=== PATIENT | female | born 1955 | race Caucasian/White ===

== ENCOUNTER 2017-02-24 12:01 | Observation (INO) ==
[2017-02-24] MEDS ORDERED: *HR* HYDROmorphone (PF) 1 MG/ML SYRINGE IVP ONE (12:14)
[2017-02-24] MEDS ORDERED: methylPREDNISolone 125 MG/2 ML VIAL IVP ONE (12:14)
[2017-02-24] MEDS ORDERED: Ondansetron 4 MG/2 ML VIAL IVP ONE (12:14)
--- NOTE | 2017-02-24 12:17 | Emergency Department Note ---
Disposition Clinical Impression: Weakness, Hyperglycemia Disposition: Admitted As Inpatient Condition: Good Extremity Problem HPI - General Chief complaint: ED Extremity Problem,Nontraumatic Stated complaint: bilateral leg pain Time Seen by Provider: 02/24/17 12:12 Source: patient Limitations: no limitations Nursing Notes Reviewed: Yes Vital Signs Reviewed: Yes - History of Present Illness HPI Narrative: Patient presents for evaluation of bilateral lower extremity pain. Patient states that the pain started overnight and did not allow her to get any sleep. Patient describes pain as being in the anterior legs with associated weakness. She does not have any specific joint tenderness or muscular tenderness. Patient 's dorsalis pedis is +1 and symmetric bilaterally. Patient has overall decreased strength in the lower extremities as well as associated pain with attempts at movement. No associated fevers or chills. No preceding viral illness. No chest pain or shortness of breath. No abdominal pain. No increased urinary frequency or burning with urination. Patient has been preparing a lot of meals for an upcoming escaping celebration. She says she is on her feet more than usual. She states her arthritis in her hands has also flared up. Pain Scale: 9 - Related Data Home Medications Medication Instructions Recorded Confirmed Metformin HCl [Metformin HCl ER] 1,000 mg PO BID #0 12/13/14 02/24/17 Pravastatin Sodium [Pravachol] 20 mg PO DAILY #0 12/13/14 02/24/17 predniSONE [PredniSONE] 30 mg PO DAILY #0 12/13/14 02/24/17 Lisinopril [Zestril] 20 mg PO DAILY 12/14/14 02/24/17 Cholecalciferol (D-3) [Vitamin D] 2,000 unit PO DAILY 02/24/17 02/24/17 GlipiZIDE [Glipizide Xl] 5 mg PO DAILY 02/24/17 02/24/17 Ranitidine HCl [Zantac] 150 mg PO HS 02/24/17 02/24/17 Allergies Allergy/AdvReac Type Severity Reaction Status Date / Time No Known Allergies Allergy Verified 12/13/14 14:06 Review of Systems: CONSTITUTIONAL: No weight loss, fever, chills, weakness or fatigue. HEENT: Eyes: No visual changes. Ears, Nose, Throat: No hearing loss, difficulty talking or unable to swallow. SKIN: No rash or itching. CARDIOVASCULAR: No chest pain, chest pressure or chest discomfort. No palpitations or edema. RESPIRATORY: No shortness of breath, cough or sputum. GASTROINTESTINAL: No anorexia, nausea, vomiting or diarrhea. No abdominal pain or blood. GENITOURINARY: No burning on urination or hematuria. NEUROLOGICAL: No headache, dizziness, syncope, paralysis, ataxia, numbness or tingling in the extremities. No change in bowel or bladder control. MUSCULOSKELETAL: Lower extremity pain b/l Endocrine: Elevated blood sugars Past Medical History - Past Medical History Medical history: Reports: diabetes, hypertension Surgical history: Reports: , cholecystectomy, other Psychiatric history: Reports: no psych history INFORMATICS MANAGER history: Reports: no INFORMATICS MANAGER history - Social History Smoking Status: Former smoker Smokeless Tobacco Status: No Alcohol use: Reports: none Drug use: Reports: none Physical Exam General appearance: NAD, conversant Eyes: anicteric sclerae, moist conjunctivae; PERRL HENT: Atraumatic; oropharynx clear with moist mucous membranes and no mucosal ulcerations Neck: Normal inspection; Trachea midline; FROM, supple Lungs: CTA, with normal respiratory effort and no intercostal retractions CV: RRR, no MRGs Abdomen: Soft, non-tender; no rebound or gaurding Extremities: No peripheral edema or extremity lymphadenopathy D. Pedis +1 and Symmetric Bilaterally Skin: Normal temperature; no rash, ulcers or lesions Psych: Appropriate mood and affect Neuro: alert and oriented to person, place and time Musculoskeletal: Muscle strength is 4-5 bilaterally to the lower extremities with hip flexion as well as knee flexion. - General Limitations: no limitations General appearance: alert, in no apparent distress Course - Reevaluation(s) Reevaluation #1: The patient's white blood cell count is elevated at 15. The patient has hyperglycemia with only mild improvement to fluids and subcutaneous insulin. The patient during shows significantly elevated glucose as well as ketones. Patient will need admission for further steroids and glucose control as well as hydration. Will discuss with hospitalist. Ultrasound of the legs was negative for DVT. KIERAN is normal bilaterally. - Consultations Consultation #1: Discussed with the hospitalist. Patient accepted for admission. Discussed other interventions including possible consult neurology. At this time the patient's flareup similar to previous lupus flare and has had some improvement with steroids, fluids, glucose control, pain medication. The patient does not qualify for at home trial of steroid burst dose secondary to her elevated blood sugars. At this time believe the most reasonable course of action is steroids and glucose control and continued monitoring. After the hospitalist comes down to evaluate the patient, we will discuss any further possibilities or concerns. Vital Signs Temperature 98.7 F 02/24/17 12:02 Pulse Rate 125 02/24/17 12:02 Respiratory Rate 18 02/24/17 12:02 Blood Pressure 170/69 02/24/17 12:02 O2 Sat by Pulse Oximetry 97 02/24/17 12:02 Temperature 98.7 F 02/24/17 12:02 Pulse Rate 107 02/24/17 16:30 Respiratory Rate 18 02/24/17 17:27 Blood Pressure 140/65 02/24/17 17:27 O2 Sat by Pulse Oximetry 96 02/24/17 16:30 Oxygen Delivery Oxygen Delivery Room Air Extremity Problem, Nontraumati - Lab Data Result diagrams: 02/24/17 12:42 02/24/17 12:42 Lab Results 02/24/17 02/24/17 02/24/17 Range/Units 12:14 12:42 12:42 WBC 15.7 H (4.3-11.1) K/mcL RBC 4.35 (3.82-4.97) M/mcL Hgb 13.2 (11.5-15.4) g/dL Hct 39.5 (35.3-44.9) % MCV 90.8 (83.0-100.0) fL MCH 30.3 (28.0-33.3) pg MCHC 33.4 (31.6-35.5) g/dL RDW 13.3 (11.5-14.5) % Plt Count 244 (140-400) K/mcL MPV 10.0 (9.4-12.4) fL Immature Gran % 0.6 (0-4) % Seg Neutrophils % 89.6 % Lymphocytes % 4.1 % Monocytes % 5.3 % Eosinophils % 0.1 % Basophils % 0.3 % Neutrophils # 14.1 H (1.6-8.9) K/mcL Lymphocytes # 0.7 (0.6-4.6) K/mcL Monocytes # 0.8 (0.0-1.3) K/mcL Eosinophils # 0.0 (0.0-0.6) K/mcL Basophils # 0.0 (0.0-0.2) K/mcL Immature Plt Fraction 4.2 (1.1-6.1) % ESR 34 H (0-15) mm/hr Sodium (136-145) mEq/L Potassium (3.5-4.5) mEq/L Chloride (98-109) mEq/L Carbon Dioxide (19-29) mEq/L BUN (7-20) mg/dL Creatinine (0.57-1.11) mg/dL Est GFR ( Amer) (> 60) Est GFR (Non-Af Amer) (> 60) BUN/Creatinine Ratio (6-26) Glucose (70-99) mg/dL POC Glucose 344 H (58-89) Calculated Osmolality (280-300) Calcium (8.6-10.8) mg/dL Total Bilirubin (0.2-1.2) mg/dL AST (5-34) Units/L ALT (0-55) Units/L Alkaline Phosphatase (38-126) Units/L Creatine Kinase (29-168) Units/L C-Reactive Protein (Less than 5) mg/L Serum Total Protein (6.0-8.3) g/dL Albumin (3.5-5.0) g/dL Globulin (2.4-3.5) g/dL Albumin/Globulin Ratio (1.1-2.2) Urine Color (Yellow) Urine Clarity (Clear) Urine pH (5.0-8.0) pH Units Ur Specific [place] (1.010-1.025) Urine Protein (Neg-Trace) mg/dL Urine Glucose (UA) (Normal) mg/dL Urine Ketones (Negative) mg/dL Urine Blood (Negative) Urine Nitrite (Negative) Urine Bilirubin (Negative) Urine Urobilinogen (Normal) mg/dL Ur Leukocyte Esterase (Negative) Ur Culture Indicated? (NO) 02/24/17 02/24/17 02/24/17 Range/Units 12:42 12:42 13:35 WBC (4.3-11.1) K/mcL RBC (3.82-4.97) M/mcL Hgb (11.5-15.4) g/dL Hct (35.3-44.9) % MCV (83.0-100.0) fL MCH (28.0-33.3) pg MCHC (31.6-35.5) g/dL RDW (11.5-14.5) % Plt Count (140-400) K/mcL MPV (9.4-12.4) fL Immature Gran % (0-4) % Seg Neutrophils % % Lymphocytes % % Monocytes % % Eosinophils % % Basophils % % Neutrophils # (1.6-8.9) K/mcL Lymphocytes # (0.6-4.6) K/mcL Monocytes # (0.0-1.3) K/mcL Eosinophils # (0.0-0.6) K/mcL Basophils # (0.0-0.2) K/mcL Immature Plt Fraction (1.1-6.1) % ESR (0-15) mm/hr Sodium 136 (136-145) mEq/L Potassium 4.0 (3.5-4.5) mEq/L Chloride 100 (98-109) mEq/L Carbon Dioxide 23 (19-29) mEq/L BUN 21 H (7-20) mg/dL Creatinine 1.00 (0.57-1.11) mg/dL Est GFR ( Amer) > 60 (> 60) Est GFR (Non-Af Amer) 56 L (> 60) BUN/Creatinine Ratio 21 (6-26) Glucose 408 H (70-99) mg/dL POC Glucose (58-89) Calculated Osmolality 302 H (280-300) Calcium 10.5 (8.6-10.8) mg/dL Total Bilirubin 1.7 H (0.2-1.2) mg/dL AST 13 (5-34) Units/L ALT 21 (0-55) Units/L Alkaline Phosphatase 46 (38-126) Units/L Creatine Kinase 27 L (29-168) Units/L C-Reactive Protein 25 H (Less than 5) mg/L Serum Total Protein 6.9 (6.0-8.3) g/dL Albumin 3.8 (3.5-5.0) g/dL Globulin 3.1 (2.4-3.5) g/dL Albumin/Globulin Ratio 1.2 (1.1-2.2) Urine Color Yellow (Yellow) Urine Clarity Clear (Clear) Urine pH 6.0 (5.0-8.0) pH Units Ur Specific [place] > 1.030 H (1.010-1.025) Urine Protein Negative (Neg-Trace) mg/dL Urine Glucose (UA) >=1000 H (Normal) mg/dL Urine Ketones 15 H (Negative) mg/dL Urine Blood Negative (Negative) Urine Nitrite Negative (Negative) Urine Bilirubin Negative (Negative) Urine Urobilinogen Normal (Normal) mg/dL Ur Leukocyte Esterase Negative (Negative) Ur Culture Indicated? NO (NO) 02/24/17 Range/Units 14:46 WBC (4.3-11.1) K/mcL RBC (3.82-4.97) M/mcL Hgb (11.5-15.4) g/dL Hct (35.3-44.9) % MCV (83.0-100.0) fL MCH (28.0-33.3) pg MCHC (31.6-35.5) g/dL RDW (11.5-14.5) % Plt Count (140-400) K/mcL MPV (9.4-12.4) fL Immature Gran % (0-4) % Seg Neutrophils % % Lymphocytes % % Monocytes % % Eosinophils % % Basophils % % Neutrophils # (1.6-8.9) K/mcL Lymphocytes # (0.6-4.6) K/mcL Monocytes # (0.0-1.3) K/mcL Eosinophils # (0.0-0.6) K/mcL Basophils # (0.0-0.2) K/mcL Immature Plt Fraction (1.1-6.1) % ESR (0-15) mm/hr Sodium (136-145) mEq/L Potassium (3.5-4.5) mEq/L Chloride (98-109) mEq/L Carbon Dioxide (19-29) mEq/L BUN (7-20) mg/dL Creatinine (0.57-1.11) mg/dL Est GFR ( Amer) (> 60) Est GFR (Non-Af Amer) (> 60) BUN/Creatinine Ratio (6-26) Glucose (70-99) mg/dL POC Glucose 360 H (58-89) Calculated Osmolality (280-300) Calcium (8.6-10.8) mg/dL Total Bilirubin (0.2-1.2) mg/dL AST (5-34) Units/L ALT (0-55) Units/L Alkaline Phosphatase (38-126) Units/L Creatine Kinase (29-168) Units/L C-Reactive Protein (Less than 5) mg/L Serum Total Protein (6.0-8.3) g/dL Albumin (3.5-5.0) g/dL Globulin (2.4-3.5) g/dL Albumin/Globulin Ratio (1.1-2.2) Urine Color (Yellow) Urine Clarity (Clear) Urine pH (5.0-8.0) pH Units Ur Specific [place] (1.010-1.025) Urine Protein (Neg-Trace) mg/dL Urine Glucose (UA) (Normal) mg/dL Urine Ketones (Negative) mg/dL Urine Blood (Negative) Urine Nitrite (Negative) Urine Bilirubin (Negative) Urine Urobilinogen (Normal) mg/dL Ur Leukocyte Esterase (Negative) Ur Culture Indicated? (NO) Attestation Statement - Attestation Attestation: I examined this patient and my medical decision-making was reviewed with the Resident Physician. I agree with the documented findings, disposition and treatment plan as described except to the extent set forth below. Bilateral lower extremity pain. History of lupus. Duplexes as well as ABIs are within normal limits. No evidence of clot burden in the lower extremities. We are concerned about acute onset weakness. This is possibly related to lupus which she has had in the past. I would avoid high-dose steroids given her uncontrolled diabetes. Given her degree of weakness we will plan to admit for further evaluation. We did consider infectious versus inflammatory causes of weakness. Plan to admit for neurological consultation.
[2017-02-24 12:49] LABS: Basophils % 0.3 %; Eosinophils % 0.1 %; Hematocrit 39.5 % (35.3-44.9); Hemoglobin 13.2 g/dL (11.5-15.4); Immature Granulocytes % 0.6 % (0-4); Immature Platelets 4.2 % (1.1-6.1); Lymphocytes # 0.7 K/mcL (0.6-4.6); Lymphocytes % 4.1 %; Mean Corpuscular HGB Conc 33.4 g/dL (31.6-35.5); Mean Corpuscular Hemoglobin 30.3 pg (28.0-33.3); Mean Corpuscular Volume 90.8 fL (83.0-100.0); Monocytes # 0.8 K/mcL (0.0-1.3); Monocytes % 5.3 %; Neutrophils # 14.1 K/mcL (1.6-8.9); Platelet Count 244 K/mcL (140-400); Red Blood Count 4.35 M/mcL (3.82-4.97); Red Cell Distribution Width 13.3 % (11.5-14.5); Segmented Neutrophils % 89.6 %
[2017-02-24 13:03] LABS: Alanine Aminotransferase 21 Units/L (0-55); Albumin 3.8 g/dL (3.5-5.0); Albumin/Globulin Ratio 1.2 (1.1-2.2); Alkaline Phosphatase 46 Units/L (38-126); Aspartate Amino Transferase 13 Units/L (5-34); BUN/Creatinine Ratio 21 (6-26); Bilirubin,Total 1.7 mg/dL (0.2-1.2); Blood Urea Nitrogen 21 mg/dL (7-20); C-Reactive Protein 25 mg/L (Less than 5); Calcium 10.5 mg/dL (8.6-10.8); Carbon Dioxide 23 mEq/L (19-29); Chloride 100 mEq/L (98-109); Globulin 3.1 g/dL (2.4-3.5); Glucose 408 mg/dL (70-99); Osmolality,Calculated 302 (280-300); Sodium 136 mEq/L (136-145); Total Protein 6.9 g/dL (6.0-8.3); eGFR For African Americans > 60 (> 60); eGFR For Non-African Americans 56 (> 60)
[2017-02-24] MEDS ORDERED: 0.9 % Sodium Chloride 1,000 ML IVC ONE ×2 (13:11→16:07)
[2017-02-24] MEDS ORDERED: Insulin Regular, Human 100 UNIT/ML SQ ONE ×2 (13:13→16:08)
[2017-02-24 13:43] LABS: Bilirubin,Urine Negative (Negative); Blood,Urine Negative (Negative); Clarity,Urine Clear (Clear); Color,Urine Yellow (Yellow); Glucose,Urine (UA) >=1000 mg/dL (Normal); Ketones,Urine 15 mg/dL (Negative); Leukocyte Esterase,Urine Negative (Negative); Nitrite,Urine Negative (Negative); Protein,Urine Negative (Neg-Trace); Specific Gravity,Urine > 1.030 (1.010-1.025); Urobilinogen,Urine Normal (Normal)
[2017-02-24] MEDS ORDERED: Ondansetron 4 MG/2 ML VIAL IVP PRN (17:04)
[2017-02-24] MEDS ORDERED: Naloxone 0.4 MG/ML INJ IVP PRN (17:04)
[2017-02-24] MEDS ORDERED: *HR* OxyCODONE Immed Rel 5 MG TABLET PO PRN (17:04)
[2017-02-24] MEDS ORDERED: *HR* HYDROmorphone (PF) 1 MG/ML SYRINGE IVP PRN (17:04)
[2017-02-24] MEDS ORDERED: Acetaminophen 325 MG TABLET PO PRN (17:04)
[2017-02-24] MEDS ORDERED: D5% in Water 1,000 ML IVC PRN (17:06)
[2017-02-24] MEDS ORDERED: *HR* Dextrose 50 % in Water (Syg) 50 ML SYRINGE IVP PRN (17:06)
[2017-02-24] MEDS ORDERED: Dextrose Gel 15 GM PO PRN ×2 (17:06)
--- NOTE | 2017-02-24 17:11 | Internal Med History&Physical ---
Date of Encounter: 02/24/17 Time of Encounter: 17:09 Assessment and Plan (1) Intractable neuropathic pain of lower extremity Current visit: Yes Status: Acute Bilateral intractable lower extremity pain with associated weakness Order MRI of the spine/lumbar Patient is concerned about possible exacerbation of lupus, with very similar symptoms in the past and requesting Solu-Medrol *Solu-Medrol IV PTOT, fall precautions Neuro checks Omeprazole for GI prophylaxis and subcutaneous heparin for DVT prophylaxis. The patient will be admitted for observation. Full code. Time spent on this admission 40 minutes. High risk for falling Qualifiers: Laterality: unspecified laterality Qualified Code(s): G57.90 - Unspecified mononeuropathy of unspecified lower limb (2) Lupus Current visit: Yes Status: Acute Continue steroids Qualifiers: Systemic lupus erythematosus type: unspecified Systemic lupus erythematosus organ involvement: unspecified Qualified Code(s): M32.9 - Systemic lupus erythematosus, unspecified (3) SIRS (systemic inflammatory response syndrome) Current visit: Yes Status: Acute Nonspecific Order chest x-ray and UA (4) Non-insulin dependent type 2 diabetes mellitus Current visit: No Status: Chronic Steroid-induced hyperglycemia *Levemir and insulin sliding scale (5) Steroid dependence Current visit: No Status: Chronic (6) Weakness Current visit: Yes Status: Acute Internal Medicine - H&P: HPI Chief complaint: Severe lower extremity pain Admitted From: Emergency Dept History of present illness: Ms. Do is a 61 year old female with a past medical history of possible lupus on chronic prednisone, diabetes type 2 not insulin-dependent, chronic leukocytosis, hypertension came to the emergency room complaining of severe lower extremity pain that started between 3 and 4 AM, generalized, described as soreness and burning, the patient has experienced some weakness on both lower extremities for the past few months. Denies any numbness and denies any progression from her distal parts of her legs, not progressing upwards. No recent illness, no fevers. The patient says that she had a similar episode about 5 years ago that was diagnosed as a possible lupus exacerbation which improved considerably with the use of Solu-Medrol. Her ESR is 34 CRPs 25 glucose is 408 white blood cell count 15.7, heart rate 114 blood pressure 170/ 69. Also describes that lower stomach pain and stabbing, related to movement 6 out of 10 in intensity but unbearable when she tries to move. Received 1 dose of Solu-Medrol at the emergency room, unable to walk due to the pain. ER requested her admission Past Med Surg Social Fam HX - Past Medical History Medical history: diabetes (Not insulin-dependent), hypertension, other ( Possible lupus on chronic prednisone 20 mg daily, hyperlipidemia, leg cellulitis , chronic leukocytosis) Psychiatric history: no psych history - Past Surgical History Surgical History: , cholecystectomy, other - Social History Smoking Status: Former smoker Smokeless Tobacco Status: No Alcohol use: none Drug use: none - Family History Father Hx Family Cardiac Disorders: Yes - Additional Family History Additional family history: Father with myocardial infarction in his 30s and possible autoimmune disease, mother with diabetes and hyperlipidemia CAD/CABG Internal Medicine - H&P: Meds Metformin 1,000 mg PO BID 12/13/14 [History] Pravastatin Sodium 20 mg PO DAILY 12/13/14 [History] PredniSONE 20 mg PO DAILY 12/13/14 [History] Lisinopril [Zestril] 20 mg PO DAILY 12/14/14 [History] Cholecalciferol (D-3) [Vitamin D] 2,000 unit PO DAILY 02/24/17 [History] GlipiZIDE [Glipizide Xl] 5 mg PO DAILY 02/24/17 [History] Ranitidine HCl [Zantac] 150 mg PO HS 02/24/17 [History] 3 Allergy/AdvReac Type Severity Reaction Status Date / Time No Known Allergies Allergy Verified 12/13/14 14:06 All Systems PM: A 10-system review of systems was performed and is negative for pertinent findings except as documented above in the HPI. Review of systems: No chest pain, short of breath, no abdominal pain, no dysuria or incontinence of urine or stool, generalized pain. Other systems out of the 10 revealed were negative - Constitutional Vitals: Temp Pulse Resp BP Pulse Ox 98.7 F 107 18 151/79 96 02/24/17 12:02 02/24/17 16:30 02/24/17 16:30 02/24/17 16:30 02/24/17 16:30 General appearance: Present: A&O X 3 - Head Head exam: Present: atraumatic, normocephalic - Eye Eye exam: Present: PERRL, conjuntiva pink, sclera anicteric Pupils: Present: PERRL - Neck Neck exam general surgery: Present: supple, trachea midline. Absent: lymphadenopathy - Respiratory Respiratory exam: Present: CTAB. Absent: accessory muscle use, rales, rhonchi, wheezes - Cardiovascular Cardiovascular exam: Present: RRR, +S1, +S2. Absent: diastolic murmur, gallop, rubs, systolic murmur - GI/Abdominal GI/Abdominal exam: Present: normal bowel sounds, soft, no peritoneal signs. Absent: distended, tenderness - Extremities Exam Extremities exam: Present: warm, radial pulses palpable and symmetrical. Absent : calf tenderness, cyanotic, pedal edema - Neurological Exam Neurological exam: Present: CN II-XII intact, oriented X3. Absent: no focal deficits, pronater drift, facial droop, speech deficit Additional comments: 4 out of 5 strength in both lower extremities, no numbness. No tenderness, no erythema - Skin Skin exam: Present: dry, intact Internal Med - H&P Results - Labs CBC & Chem 7: 02/24/17 12:42 02/24/17 12:42
[2017-02-24] MEDS ORDERED: 0.9 % Sodium Chloride 1,000 ML IVC SCH (17:15)
[2017-02-24] MEDS ORDERED: Insulin LISPRO 300 UNITS/3 ML VIAL SQ SCH (21:00)
[2017-02-24] MEDS: Insulin LISPRO 300 UNITS/3 ML VIAL SQ SCH (21:01)
[2017-02-24] MEDS: *HR* Heparin 5,000 UNIT/ML VIAL SQ SCH ×2 (21:04→21:14)
[2017-02-24] MEDS: Insulin DETEMIR 100 UNIT/ML X5UNITS SQ SCH (21:13)
[2017-02-24] MEDS: Lisinopril 20 MG TABLET PO SCH (21:13)
[2017-02-24] MEDS: MethylPREDNISolone 40 MG/ML VIAL IVP SCH (21:13)
[2017-02-25 03:58] VITALS: BP 125/71
[2017-02-25 04:14] LABS: Hematocrit 33.7 % (35.3-44.9); Mean Corpuscular HGB Conc 32.9 g/dL (31.6-35.5); Mean Corpuscular Hemoglobin 30.2 pg (28.0-33.3); Mean Corpuscular Volume 91.6 fL (83.0-100.0); Mean Platelet Volume 10.8 fL (9.4-12.4); Platelet Count 202 K/mcL (140-400); Red Blood Count 3.68 M/mcL (3.82-4.97); Red Cell Distribution Width 13.2 % (11.5-14.5)
[2017-02-25 04:16] LABS: Hemoglobin 11.1 g/dL (11.5-15.4)
[2017-02-25 04:19] LABS: Hemoglobin A1C 9.4 %
[2017-02-25 04:29] LABS: BUN/Creatinine Ratio 19 (6-26); Blood Urea Nitrogen 16 mg/dL (7-20); Calcium 9.2 mg/dL (8.6-10.8); Carbon Dioxide 23 mEq/L (19-29); Chloride 107 mEq/L (98-109); Glucose 237 mg/dL (70-99); Osmolality,Calculated 295 (280-300); Potassium 4.6 mEq/L (3.5-4.5); Sodium 138 mEq/L (136-145); eGFR For African Americans > 60 (> 60); eGFR For Non-African Americans > 60 (> 60)
[2017-02-25] MEDS: *HR* Heparin 5,000 UNIT/ML VIAL SQ SCH (06:02)
--- NOTE | 2017-02-25 07:54 | Discharge Summary ---
Date of Encounter: 02/25/17 Time of Encounter: 07:48 - Discharge Diagnosis (1) Intractable neuropathic pain of lower extremity Priority: Primary Status: Acute Comments: Bilateral intractable lower extremity pain , unclear etiology, possibly associated to Lupus, subsided whit solumedrol Qualifiers: Laterality: unspecified laterality Qualified Code(s): G57.90 - Unspecified mononeuropathy of unspecified lower limb (2) Lupus Priority: Secondary Status: Acute Qualifiers: Systemic lupus erythematosus type: unspecified Systemic lupus erythematosus organ involvement: unspecified Qualified Code(s): M32.9 - Systemic lupus erythematosus, unspecified (3) SIRS (systemic inflammatory response syndrome) Priority: Secondary Status: Acute (4) Non-insulin dependent type 2 diabetes mellitus Priority: Secondary Status: Chronic Comments: Steroid-induced hyperglycemia (5) Steroid dependence Priority: Secondary Status: Chronic (6) Weakness Priority: Secondary Status: Acute - Discharge Medications Prescriptions: OxyCODONE Immed Rel [Roxicodone 5 MG] 5 mg PO Q6HR PRN #30 tablet PRN Reason: Moderate Pain (4-6) Insulin DETEMIR [Levemir] 10 unit SQ BID 30 Days [id number] Insulin LISPRO [HumaLOG] 5 units SQ TIDAC 30 Days vial predniSONE [PredniSONE] 10 mg PO DAILY 21 Days tablet Home Medications: Metformin HCl [Metformin HCl ER] 1,000 mg PO BID #0 12/13/14 [History] Pravastatin Sodium [Pravachol] 20 mg PO DAILY #0 12/13/14 [History] Lisinopril [Zestril] 20 mg PO DAILY 12/14/14 [History] Cholecalciferol (D-3) [Vitamin D] 2,000 unit PO DAILY 02/24/17 [History] GlipiZIDE [Glipizide Xl] 5 mg PO DAILY 02/24/17 [History] Ranitidine HCl [Zantac] 150 mg PO HS 02/24/17 [History] Insulin DETEMIR [Levemir] 10 unit SQ BID 30 Days [id number] 02/25/17 [Rx] Insulin LISPRO [HumaLOG] 5 units SQ TIDAC 30 Days vial 02/25/17 [Rx] OxyCODONE Immed Rel [Roxicodone 5 MG] 5 mg PO Q6HR PRN #30 tablet 02/25/17 [Rx] predniSONE [PredniSONE] 10 mg PO DAILY 21 Days tablet 02/25/17 [Rx] Allergies/Adverse Reactions: 3 Allergy/AdvReac Type Severity Reaction Status Date / Time No Known Allergies Allergy Verified 12/13/14 14:06 Procedures/tests Complete & Pending: Procedures Performed prior 72 hours Category Date Time Status MR lumbar spine wo con [MR] Routine MRI 02/24/17 17:04 Stop Req Date of admission: 02/24/17 16:32 Primary care physician: Ric Rasheed MD Consults: 02/24/17 17:16 Consult to Occupational Therapy [CONS] Routine Comment: Evaluate, develop and implement POC Reason for Consult: Eval Consult to Physical Therapy [CONS] Routine Comment: Evaluate, develop and implement POC Reason for Consult: Eval - Patient Status Disposition: Home, Self-Care Condition: Good Overall status at discharge: patient is back to baseline - Discharge Instructions Follow Up With: Ric Rasheed MD [Primary Care Provider] - Additional Instructions: Follow-up with primary care physician within the next 7 days. Follow-up with rheumatology within the next 2 weeks. Taper prednisone. Continue Levemir 10 units twice a day and insulin lispro 5 units 3 times a day. - Diet and Activity Activity: increase activity as tolerated Diet: diabetic diet Hospital course: Ms. Do is a 61 year old female with a past medical history of possible lupus on chronic prednisone 30 mg daily, diabetes type 2 not insulin-dependent, chronic leukocytosis, hypertension, came to the emergency room complaining of severe lower extremity pain that started between 3 and 4 AM, generalized, described as soreness and burning, the patient has experienced some weakness on both lower extremities for the past few months. Denied any numbness and denied any progression from her distal part of her legs, not progressing upwards. No recent illness, no fevers. The patient said that she had a similar episode about 5 years ago that was diagnosed as a possible lupus exacerbation which improved considerably with the use of Solu-Medrol. Her ESR was 34 CRP was 25, glucose was 408 white blood cell count 15.7, heart rate 114 blood pressure 170/ 69. Also described that lower stomach pain and stabbing, related to movement 6 out of 10 in intensity but unbearable when she tries to move. Received 1 dose of Solu-Medrol at the emergency room, was unable to walk due to the pain. ER requested her admission. The patient was continued on Solumedrol and her symptoms have almost completely resolved. MRI of the spine was cancelled as she recovered her strenght in both lower extremities and the pain has subsided. Chest x-ray and UA ordered did not show any signs of infection. White blood cell count today is 11.5 Was started on Levemir and Lispro which will be continued as her Hb A1c was 9.4. - Time Spent with Patient Total time spent providing and/or coordinating discharge services: Greater than 30 minutes (40 min) - Constitutional Vitals: Temp Pulse Resp BP Pulse Ox 97.5 F L 74 14 125/71 97 02/25/17 03:55 02/25/17 03:55 02/25/17 03:55 02/25/17 03:55 02/25/17 03:55 General appearance: Present: A&O X 3 - Head Head exam: Present: atraumatic, normocephalic - Eye Eye exam: Present: PERRL, conjuntiva pink, sclera anicteric Pupils: Present: PERRL - Neck Neck exam general surgery: Present: supple, trachea midline. Absent: lymphadenopathy - Respiratory Respiratory exam: Present: CTAB. Absent: accessory muscle use, rales, rhonchi, wheezes - Cardiovascular Cardiovascular exam: Present: RRR, +S1, +S2. Absent: diastolic murmur, gallop, rubs, systolic murmur - GI/Abdominal GI/Abdominal exam: Present: normal bowel sounds, soft, no peritoneal signs. Absent: distended, tenderness - Extremities Exam Extremities exam: Present: warm, radial pulses palpable and symmetrical. Absent : calf tenderness, cyanotic, pedal edema - Neurological Exam Neurological exam: Present: CN II-XII intact, oriented X3, no focal deficits. Absent: pronater drift, facial droop, speech deficit - Skin Skin exam: Present: dry, intact
[2017-02-25] MEDS: Insulin DETEMIR 100 UNIT/ML X5UNITS SQ SCH (08:22)
[2017-02-25] MEDS: Insulin LISPRO 300 UNITS/3 ML VIAL SQ SCH (08:23)
[2017-02-25] MEDS: MethylPREDNISolone 40 MG/ML VIAL IVP SCH (08:26)
[2017-02-25] MEDS: Lisinopril 20 MG TABLET PO SCH (08:28)
--- NOTE | 2017-02-25 20:00 | Electrocardiograph Report ---
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
== END 2017-02-25 10:04 | disposition home or self-care (01) ==
LOC: 3ANU 12:01 → EMEROO 12:01 → 3ANU 18:40
PROVIDERS: ADMIT Internal Medicine; ATTEND Internal Medicine

== ENCOUNTER 2017-04-12 23:16 | Observation (INO) ==
[2017-04-12] MEDS ORDERED: *HR* HYDROmorphone (PF) 1 MG/ML SYRINGE IVP ONE (23:30)
[2017-04-12] MEDS ORDERED: methylPREDNISolone 125 MG/2 ML VIAL IVP ONE (23:30)
--- NOTE | 2017-04-12 23:38 | Emergency Department Note ---
Disposition Clinical Impression: Polymyalgia rheumatica, Chronic use of steroids, Left leg pain Lupus Qualifiers: Systemic lupus erythematosus type: unspecified Systemic lupus erythematosus organ involvement: unspecified Qualified Code(s): M32.9 - Disposition: Admitted As Inpatient Condition: Fair General Adult HPI - General Chief complaint: ED Extremity Injury, Lower Stated complaint: BLE pain Time Seen by Provider: 04/12/17 23:29 Source: patient, EMS Mode of arrival: ambulatory Limitations: no limitations Nursing Notes Reviewed: Yes Vital Signs Reviewed: Yes - History of Present Illness HPI Narrative: 62-year-old female with a history of PMR as well as lupus presents for evaluation of atraumatic bilateral lower extremity pain. Patient does have a history of this in the past. Patient states that she was admitted approximately 6 months ago due to similar complaints. States that her pain progressed from this evening. Notes it to be localized worse on the left from the knee to the hip. States she cannot move or ambulate due to the pain. Patient denies any fevers. Denies abdominal pain. No back pain. Denies any numbness or tingling of her lower extremities. States she took Percocet at home and also has been on prednisone 30 mg daily. Pain Scale: 9 - Related Data Home Medications Medication Instructions Recorded Confirmed Metformin HCl [Metformin HCl ER] 1,000 mg PO BID #0 12/13/14 02/24/17 Pravastatin Sodium [Pravachol] 20 mg PO DAILY #0 12/13/14 02/24/17 Lisinopril [Zestril] 20 mg PO DAILY 12/14/14 02/24/17 Cholecalciferol (D-3) [Vitamin D] 2,000 unit PO DAILY 02/24/17 02/24/17 GlipiZIDE [Glipizide Xl] 5 mg PO DAILY 02/24/17 02/24/17 Ranitidine HCl [Zantac] 150 mg PO HS 02/24/17 02/24/17 Previous Rx's Medication Instructions Recorded Insulin DETEMIR [Levemir] 10 unit SQ BID 30 Days [id number] 02/25/17 Insulin LISPRO [HumaLOG] 5 units SQ TIDAC 30 Days vial 02/25/17 OxyCODONE Immed Rel [Roxicodone 5 5 mg PO Q6HR PRN #30 tablet 11/19/17 MG] predniSONE [PredniSONE] 10 mg PO DAILY 21 Days tablet 02/25/17 Allergies Allergy/AdvReac Type Severity Reaction Status Date / Time No Known Allergies Allergy Verified 12/13/14 14:06 All systems ED: reviewed and negative except as stated. Constitutional: Reports: as per HPI. Denies: fever Eyes: Reports: as per HPI ENT ED: Reports: as per HPI Cardiovascular: Reports: as per HPI. Denies: chest pain Respiratory: Reports: as per HPI. Denies: cough, dyspnea Gastrointestinal: Reports: as per HPI. Denies: abdominal pain, nausea, vomiting Genitourinary: Reports: as per HPI Musculoskeletal: Reports: as per HPI Integumentary: Reports: as per HPI. 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 - Social History Smoking Status: Former smoker Smokeless Tobacco Status: No Alcohol use: Reports: none Drug use: Reports: none Physical Exam - General Limitations: no limitations General appearance: alert, in no apparent distress - Head Head exam: atraumatic, normocephalic, normal inspection - Eye Eye exam: Present: normal appearance, PERRL, EOMI - ENT ENT exam: normal exam, normal oropharynx, mucous membranes moist - Neck Neck exam: Present: normal inspection, full ROM, trachea midline - Chest Chest inspection: Present: normal inspection, symmetric chest wall rise - Respiratory Respiratory exam: Present: normal lung sounds bilaterally - Cardiovascular Cardiovascular exam: Present: regular rate, normal rhythm - Abdominal Exam Abdominal exam: Present: soft, Non-Tender. Absent: tenderness, distention, guarding, rebound, rigidity - Extremities Exam Extremities exam: Present: normal inspection, other (Tenderness on direct palpation of the left knee to hip. No erythema is warm to the touch. No crepitus.) - Expanded Lower Extremity Exam Hip/Pelvis exam: Present: normal inspection, tenderness. Absent: swelling Upper leg exam: Present: normal inspection, tenderness (Left leg) Knee exam: Present: normal inspection Lower leg exam: Present: normal inspection Ankle exam: Present: normal inspection Neurovascular/Tendon exam: Present: normal capillary refill. Absent: pulse deficit, motor deficit, sensory deficit - Back Exam Back exam: Present: normal inspection. Absent: tenderness - Neurological Exam Neurological exam: Present: alert, oriented X3, CN II-XII intact - Skin Skin exam: Present: warm, dry, intact, normal color Course Course Narrative: Patient seen and examined. She appears uncomfortable. Patient will get basic lab work IV pain medication and stress dose steroids. Patient will likely require admission. - Reevaluation(s) Reevaluation #1: Patient seen and examined. Patient states her symptoms have improved. Patient' s resting comfortably. Time: 01:09 Vital Signs Temperature 98.1 F 04/12/17 23:18 Pulse Rate 107 04/12/17 23:18 Respiratory Rate 16 04/12/17 23:18 Blood Pressure 159/66 04/12/17 23:18 O2 Sat by Pulse Oximetry 99 04/12/17 23:18 Temperature 99.5 F 04/13/17 01:57 Pulse Rate 97 04/13/17 01:57 Respiratory Rate 15 04/13/17 01:57 Blood Pressure 162/82 04/13/17 01:57 O2 Sat by Pulse Oximetry 96 04/13/17 01:57 Oxygen Delivery Oxygen Delivery Room Air Medical Decision Making - MDM Narrative Medical decision making narrative: 62-year-old female with a history of PMR as well as lupus on chronic steroids presents for evaluation of a full flare. Patient does have a history of prior over the past several months. At that time the patient required admission. Patient is on chronic steroids. Patient's also been taking opioids at home. Patient states that she could not walk due to the pain. Pain is primarily in the left thigh. Patient had basic lab work as well as inflammatory markers. Patient was given increased steroid doses concerns for stress dose. Patient was also given IV pain medication. Patient's symptoms improved. However given the fact that the patient has difficulty ambulating patient would benefit from inpatient admission and pain control. Patient may also benefit from PT OT evaluation and physical therapy the recommendations. There is low concerns for low back or central pathology the patient's pain. Patient does have autoimmune disease per history as well as PMR. No imaging was warranted based on the exam. Patient did not appear to have a deep tissue infection. There is no crepitus. There is no erythema or concerns or cellulitis. - Lab Data Lab results reviewed: Yes I reviewed the patient's lab results. Result diagrams: 04/13/17 05:59 04/13/17 05:59 Lab Results 04/12/17 04/12/17 04/12/17 Range/Units 23:40 23:40 23:40 WBC 15.9 H (4.3-11.1) K/mcL RBC 4.29 (3.82-4.97) M/mcL Hgb 12.6 (11.5-15.4) g/dL Hct 38.9 (35.3-44.9) % MCV 90.7 (83.0-100.0) fL MCH 29.4 (28.0-33.3) pg MCHC 32.4 (31.6-35.5) g/dL RDW 14.3 (11.5-14.5) % Plt Count 282 (140-400) K/mcL MPV 9.4 (9.4-12.4) fL Immature Gran % 0.5 (0-4) % Seg Neutrophils % 77.2 % Lymphocytes % 15.3 % Monocytes % 6.5 % Eosinophils % 0.2 % Basophils % 0.3 % Neutrophils # 12.3 H (1.6-8.9) K/mcL Lymphocytes # 2.4 (0.6-4.6) K/mcL Monocytes # 1.0 (0.0-1.3) K/mcL Eosinophils # 0.0 (0.0-0.6) K/mcL Basophils # 0.0 (0.0-0.2) K/mcL ESR 25 H (0-15) mm/hr Sodium 141 (136-145) mEq/L Potassium 4.0 (3.5-5.1) mEq/L Chloride 106 (98-107) mEq/L Carbon Dioxide 21 L (23-29) mEq/L BUN 19 (8-23) mg/dL Creatinine 0.86 (0.60-1.20) mg/dL Est GFR ( Amer) > 60 (> 60) Est GFR (Non-Af Amer) > 60 (> 60) BUN/Creatinine Ratio 22 (6-26) Glucose 207 H (70-105) mg/dL Calculated Osmolality 300 (280-300) Calcium 10.2 (8.6-10.3) mg/dL Total Bilirubin 1.4 H (0.3-1.0) mg/dL AST 14 (13-39) Units/L ALT 19 (7-52) Units/L Alkaline Phosphatase 34 (34-104) Units/L C-Reactive Protein 11 H (Less than 10) mg/L Serum Total Protein 6.7 (6.4-8.9) g/dL Albumin 4.2 (3.5-5.7) g/dL Globulin 2.5 (2.4-3.5) g/dL Albumin/Globulin Ratio 1.7 (1.1-2.2) S.B.A.R. - S.B.A.R. Situation: Demographics Background: Presenting Complaint Assessment: Vital Signs, Course and respsone to treatment, Patient/Family Expectation Recommendation: Barrier(s) to disposition, Recommendation based on pending studies, treatments, or consults S.B.A.R. Report Given to: Dr. Darren TinocoB.AKelly Repor Time: 00:57 Attestation Statement - Attestation Attestation: I, Emile Krueger MD, personally evaluated this patient and discussed their management with the resident physician. I reviewed the resident's note and agree with the documented findings, medical decision making, and plan of care. 62-year-old female with history of polymyalgia rheumatica and currently on prednisone. She presents complaining of a flareup with pain in her legs. States that she is been unable to move or ambulate due to the pain. She has Percocet at home for pain which she tried but is still having severe pain to the point she cannot walk. On examination patient is a well-developed well-nourished well-appearing female in no acute distress. She is alert and oriented 3. There is no cyanosis or diaphoresis. Labs reviewed. The hospitalist, Dr. Banks, was consulted and accepted admission of the patient.
[2017-04-12 23:48] LABS: Basophils % 0.3 %; Eosinophils % 0.2 %; Hematocrit 38.9 % (35.3-44.9); Hemoglobin 12.6 g/dL (11.5-15.4); Immature Granulocytes % 0.5 % (0-4); Lymphocytes # 2.4 K/mcL (0.6-4.6); Lymphocytes % 15.3 %; Mean Corpuscular HGB Conc 32.4 g/dL (31.6-35.5); Mean Corpuscular Hemoglobin 29.4 pg (28.0-33.3); Mean Corpuscular Volume 90.7 fL (83.0-100.0); Mean Platelet Volume 9.4 fL (9.4-12.4); Monocytes % 6.5 %; Neutrophils # 12.3 K/mcL (1.6-8.9); Platelet Count 282 K/mcL (140-400); Red Blood Count 4.29 M/mcL (3.82-4.97); Red Cell Distribution Width 14.3 % (11.5-14.5); Segmented Neutrophils % 77.2 %
[2017-04-13 00:10] LABS: Alanine Aminotransferase 19 Units/L (7-52); Albumin 4.2 g/dL (3.5-5.7); Albumin/Globulin Ratio 1.7 (1.1-2.2); Alkaline Phosphatase 34 Units/L (34-104); Aspartate Amino Transferase 14 Units/L (13-39); BUN/Creatinine Ratio 22 (6-26); Bilirubin,Total 1.4 mg/dL (0.3-1.0); Blood Urea Nitrogen 19 mg/dL (8-23); C-Reactive Protein 11 mg/L (Less than 10); Calcium 10.2 mg/dL (8.6-10.3); Carbon Dioxide 21 mEq/L (23-29); Chloride 106 mEq/L (98-107); Globulin 2.5 g/dL (2.4-3.5); Glucose 207 mg/dL (70-105); Osmolality,Calculated 300 (280-300); Sodium 141 mEq/L (136-145); Total Protein 6.7 g/dL (6.4-8.9); eGFR For African Americans > 60 (> 60); eGFR For Non-African Americans > 60 (> 60)
[2017-04-13] MEDS ORDERED: Naloxone 0.4 MG/ML INJ IVP PRN (04:55)
[2017-04-13] MEDS ORDERED: Ondansetron ODT 4 MG TAB.RAPDIS SL PRN (04:55)
[2017-04-13] MEDS ORDERED: D5% in Water 1,000 ML IVC PRN (04:57)
[2017-04-13] MEDS ORDERED: *HR* Dextrose 50 % in Water (Syg) 50 ML SYRINGE IVP PRN (04:57)
[2017-04-13] MEDS ORDERED: Dextrose Gel 15 GM/37.5 ML TUBE PO PRN ×2 (04:57)
--- NOTE | 2017-04-13 05:10 | Internal Med History&Physical ---
<Seymour Myers - Last Filed: 04/13/17 05:21> Date of Encounter: 04/13/17 Time of Encounter: 04:00 Assessment and Plan (1) Leg pain, bilateral Current visit: Yes Status: Acute Presumptively treating as autoimmune, atypical manifestation of Polymyalgia Rheumatica. Patient has demonstrated response to prednisone in past, no manifestation of symptoms in UE. No documented elevation of ESR/CRP. Ordering LLE doppler. Pt has referral to [facility] for evaluation of autoimmune component to presentation. (2) Insulin dependent type 2 diabetes mellitus Current visit: Yes Status: Acute Onset 6 weeks ago. Chronic steroid use likely contributing to hyperglycemia. ACHS+SSI. (3) Osteoarthritis Current visit: Yes Status: Acute Continue symptomatic treatment. Pt scheduled for ortho eval outpatient. Qualifiers: Osteoarthritis location: knee Osteoarthritis type: unspecified Laterality : bilateral Qualified Code(s): M17.0 - Bilateral primary osteoarthritis of knee (4) HTN (hypertension) Current visit: No Status: Chronic Continue Zestril. Qualifiers: Hypertension type: essential hypertension Qualified Code(s): I10 - Essential (primary) hypertension (5) DVT prophylaxis Current visit: Yes Status: Acute SQ Heparin 5000U Q12h. total time: 40 min Internal Medicine - H&P: HPI Admitted From: Emergency Dept Plans for Post Hospital Care: Home History of present illness: Ms. Do is a 62 year old female presenting with 04/12/16 onset of bilateral lower extremity pain, past medical history of insulin dependent DM2, osteoarthritis, HTN, and polymyalgia rheumatica. 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 Denies upper extremity involvement. Denies similarity of pain to her osteoarthritis, denies tingling in her toes/ feet. Patient is alert, conversant, states pain is resolving on current pain management along with an increase of prednisone (currently takes 30mg daily). Past Med Surg Social Fam HX - Past Medical History Medical history: arthritis, diabetes, GERD, hyperlipidemia, hypertension Psychiatric history: no psych history - Past Surgical History Surgical History: , cholecystectomy, other - Social History Smoking Status: Former smoker Smokeless Tobacco Status: No Alcohol use: none Drug use: none - Family History Father Hx Family Cardiac Disorders: Yes Internal Medicine - H&P: Meds Metformin HCl [Metformin HCl ER] 1,000 mg PO BID #0 12/13/14 [History] Pravastatin Sodium [Pravachol] 20 mg PO DAILY #0 12/13/14 [History] Lisinopril [Zestril] 20 mg PO DAILY 12/14/14 [History] Cholecalciferol (D-3) [Vitamin D] 2,000 unit PO DAILY 02/24/17 [History] GlipiZIDE [Glipizide Xl] 5 mg PO DAILY 02/24/17 [History] Ranitidine HCl [Zantac] 150 mg PO HS 02/24/17 [History] Insulin DETEMIR [Levemir] 10 unit SQ BID 30 Days [id number] 02/25/17 [Rx] Insulin LISPRO [HumaLOG] 5 units SQ TIDAC 30 Days vial 02/25/17 [Rx] OxyCODONE Immed Rel [Roxicodone 5 MG] 5 mg PO Q6HR PRN #30 tablet 02/25/17 [Rx] predniSONE [PredniSONE] 10 mg PO DAILY 21 Days tablet 02/25/17 [Rx] 3 Allergy/AdvReac Type Severity Reaction Status Date / Time No Known Allergies Allergy Verified 12/13/14 14:06 All Systems PM: A 10-system review of systems was performed and is negative for pertinent findings except as documented above in the HPI. - Constitutional Vitals: Temp Pulse Resp BP Pulse Ox 99.5 F 97 15 162/82 96 04/13/17 01:57 04/13/17 01:57 04/13/17 01:57 04/13/17 01:57 04/13/17 01:57 General appearance: Present: A&O X 3, no acute distress - Head Head exam: Present: atraumatic - Eye Eye exam: Present: EOMI - Respiratory Respiratory exam: Present: CTAB - Cardiovascular Cardiovascular exam: Present: +S1, +S2, tachycardia - GI/Abdominal GI/Abdominal exam: Present: no peritoneal signs - Extremities Exam Additional comments: limited range of motion bilateral knee joints; tenderness to palpation L calf, denies hip involvement, no incontinence, saddle anesthesia. Internal Med - H&P Results - Labs CBC & Chem 7: 04/12/17 23:40 04/12/17 23:40 <Banks,Yinzhong - Last Filed: 04/13/17 05:43> Date of Encounter: 04/13/17 Internal Medicine - H&P: HPI History of present illness: Ms. Do is a 62 year old female All Systems PM: A 10-system review of systems was performed and is negative for pertinent findings except as documented above in the HPI. - Constitutional Vitals: Temp Pulse Resp BP Pulse Ox 99.5 F 97 15 162/82 96 04/13/17 01:57 04/13/17 01:57 04/13/17 01:57 04/13/17 01:57 04/13/17 01:57 Internal Med - H&P Results - Labs CBC & Chem 7: 04/12/17 23:40 04/12/17 23:40 - Attending Attestation I have seen and examined pt independently. I have discussed with Resident physician Dr Myers regarding the management plan. Agree with the documentation.
[2017-04-13] MEDS ORDERED: *HR* Morphine 2 MG/ML SYRINGE IVP PRN (05:11)
[2017-04-13] MEDS ORDERED: *HR* Heparin 5,000 UNIT/ML VIAL SQ SCH (06:00)
[2017-04-13 06:49] LABS: Basophils % 0.2 %; Hematocrit 37.5 % (35.3-44.9); Hemoglobin 12.3 g/dL (11.5-15.4); Immature Granulocytes % 0.4 % (0-4); Lymphocytes # 0.7 K/mcL (0.6-4.6); Lymphocytes % 4.1 %; Mean Corpuscular HGB Conc 32.8 g/dL (31.6-35.5); Mean Corpuscular Hemoglobin 29.2 pg (28.0-33.3); Mean Corpuscular Volume 89.1 fL (83.0-100.0); Mean Platelet Volume 10.1 fL (9.4-12.4); Monocytes # 0.5 K/mcL (0.0-1.3); Monocytes % 3.2 %; Neutrophils # 14.5 K/mcL (1.6-8.9); Platelet Count 238 K/mcL (140-400); Red Blood Count 4.21 M/mcL (3.82-4.97); Red Cell Distribution Width 14.5 % (11.5-14.5); Segmented Neutrophils % 92.1 %
[2017-04-13 07:11] LABS: BUN/Creatinine Ratio 23 (6-26); Blood Urea Nitrogen 18 mg/dL (8-23); Calcium 10.1 mg/dL (8.6-10.3); Carbon Dioxide 19 mEq/L (23-29); Chloride 103 mEq/L (98-107); Glucose 362 mg/dL (70-105); Osmolality,Calculated 301 (280-300); Potassium 4.5 mEq/L (3.5-5.1); Sodium 137 mEq/L (136-145); eGFR For African Americans > 60 (> 60); eGFR For Non-African Americans > 60 (> 60)
[2017-04-13] MEDS ORDERED: Insulin LISPRO 300 UNITS/3 ML VIAL SQ SCH ×3 (07:30→21:00)
[2017-04-13] MEDS ORDERED: methylPREDNISolone 125 MG/2 ML VIAL IVP SCH (08:00)
[2017-04-13] MEDS: Insulin DETEMIR 100 UNIT/ML X5UNITS SQ SCH ×2 (09:08→22:11)
[2017-04-13] MEDS: Lisinopril 20 MG TABLET PO SCH (09:09)
[2017-04-13] MEDS ORDERED: Dexamethasone 4 MG/ML VIAL INTRAART ONE (09:51)
[2017-04-13] MEDS ORDERED: MethylPREDNISolone Acet(DEPOT) 80 MG/ML VIAL INTRAART ONE (09:51)
--- NOTE | 2017-04-13 11:11 | Internal Med Progress Note ---
Date of Encounter: 04/13/17 Time of Encounter: 11:09 - Assessment and plan (1) Osteoarthritis Current Visit: Yes Status: Acute Assessment and plan: to bilateral knees, follows with Ortho. Previously told she will need bilateral knee replacements. Now with bilateral lower extremity pain, weakness and difficulty ambulating (initial episode 5 years ago, has been quiescent since with recurrent 6 weeks ago and now). No radiculopathy, no saddle anesthesia or bowel or bladder incontinence. Ortho consulted and planning intra-articular steroid injection. PT/OT consult as she may require SNF Qualifiers: Osteoarthritis location: knee Osteoarthritis type: unspecified Laterality : bilateral Qualified Code(s): M17.0 - Bilateral primary osteoarthritis of knee (2) HTN (hypertension) Current Visit: No Status: Chronic Assessment and plan: per hx. BP mildly elevated. Possibly secondary to pain. Hold on adjusting home BP medications this time. Monitor BP and titrate PRN Qualifiers: Hypertension type: essential hypertension Qualified Code(s): I10 - Essential (primary) hypertension (3) Insulin dependent type 2 diabetes mellitus Current Visit: Yes Status: Acute Assessment and plan: per hx. Hgb A1c 8%, blood sugars variable due to IV steroids. Stop IV steroids , resume home steroids for PMR. Cont long-acting, increase SSI to medium dose. Monitor blood sugar and titrate PRN (4) Polymyalgia rheumatica Current Visit: Yes Status: Acute Assessment and plan: per hx. On chronic steroids. (5) Leukocytosis Current Visit: Yes Status: Acute Assessment and plan: WBC 15K, likely secondary to chronic steroid use. Afebrile, no hypotension or tachycardia. No evidence of infection. Qualifiers: Leukocytosis type: unspecified Qualified Code(s): D72.829 - Elevated white blood cell count, unspecified (6) DVT prophylaxis Current Visit: Yes Status: Acute Assessment and plan: heparin - Subjective Interval history: Seen and examined at bedside. Patient is noted to me, information obtained from chart review and patient report. Patient reports a history of lupus, PMR and osteoarthritis of bilateral knees. She reports an episode similar to current presentation possibly 5 years ago with no recurrence until 6 weeks ago and now yesterday. She describes acute onset of weakness and pain to bilateral legs, worse to the left. She has been able to bear weight but still needs assistance ambulating. When necessary pain medicine helps with pain. Activity , movement worsens pain. No numbness or tingling. No lower back pain. No bladder/bowel incontinence - Constitutional Vitals: Temp Pulse Resp BP Pulse Ox 98.2 F 80 14 153/77 95 04/13/17 10:57 04/13/17 10:57 04/13/17 10:57 04/13/17 10:57 04/13/17 10:57 General appearance: Present: A&O X 3, no acute distress - Head Head exam: Present: atraumatic, normocephalic - Eye Eye exam: Present: PERRL, conjuntiva pink, sclera anicteric Pupils: Present: PERRL - Neck Neck exam general surgery: Present: supple, trachea midline. Absent: lymphadenopathy - Respiratory Respiratory exam: Present: CTAB. Absent: accessory muscle use, rales, rhonchi, wheezes - Cardiovascular Cardiovascular exam: Present: RRR, +S1, +S2. Absent: diastolic murmur, gallop, rubs, systolic murmur - GI/Abdominal GI/Abdominal exam: Present: normal bowel sounds, soft, no peritoneal signs. Absent: distended, tenderness - Extremities Exam Extremities exam: Present: pedal edema, warm, radial pulses palpable and symmetrical. Absent: calf tenderness, cyanotic - Neurological Exam Neurological exam: Present: CN II-XII intact, oriented X3, no focal deficits. Absent: strengths equal and symetr throughout, pronater drift, facial droop, speech deficit Additional comments: LLE weakness - Skin Skin exam: Present: dry, intact Internal Medicine: Result - Labs CBC & Chem 7: 04/13/17 05:59 04/13/17 05:59 Labs: Short CBC 04/13/17 Range/Units 05:59 WBC 15.8 H (4.3-11.1) K/mcL Hgb 12.3 (11.5-15.4) g/dL Hct 37.5 (35.3-44.9) % Plt Count 238 (140-400) K/mcL Neutrophils # 14.5 H (1.6-8.9) K/mcL BMP 04/13/17 05:59 Sodium 137 Potassium 4.5 Chloride 103 Carbon Dioxide 19 L BUN 18 Creatinine 0.80 Glucose 362 H Calcium 10.1 Consult Discharge Plan - Plan Referrals: Ric Rasheed MD [Primary Care Provider] -
--- NOTE | 2017-04-13 11:58 | Orthopedic Consult Note ---
Date of Encounter: 04/13/17 Time of Encounter: 11:49 History of Present Illness Chief complaint: Acute left leg pain, chronic bilateral knee pain HPI: Ms. Do is a 62 year old female with a history of known arthritic knees for many years time. The patient states that she has had a different pain occurred her left leg 3 times in the past. One was 5 or 6 years ago, one was about 6 weeks ago and the current episode is the third of event. She states it is different from her normal knee pain. She denies back pain. Denies numbness or tingling. Denies hip or groin pain. Patient has had treatment for her knees in the past. She has undergone steroid injections as well as prolotherapy with short-term relief. She has been told she will "need" total knee replacements. Patient has a history of diabetes hypertension and what sounds like an autoimmune disorder though doubtful and arthritic process. Patient is on 30 mg of prednisone daily. I reviewed the patient's history and physical exam is completed in the formal medical record. Pertinent orthopedic examination of both lower extremities shows good range of motion of both knees without overt instability. There is no obvious deformity though the leg size hides quite a bit. There is some patellofemoral crepitance. There is no evidence of the hip internal or external rotation pain. There is some edema in the left lower extremity from the knee distal. Examination of the left knee does reveal some posterior fullness which is somewhat tender. I reviewed x-rays. These reveal severe varus deformity knees with [id number] contact in the medial compartment with severe tricompartmental arthritic findings noted. There is massive spurring in both patellofemoral joints with lateral subluxation of the patella. Lateral views of the knees reveal the advanced tricompartmental findings. 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 Impression: Acute left leg pain secondary to advanced osteoarthritis. Treatment: Had a long discussion with the patient regarding her arthritic knees and the other underlying conditions. She understands that definitive treatment for the knees would be knee replacement though at this time I am not recommending that. I think she needs to be conscientious about weight loss and hopefully we can wean her down or off steroids. She has plans to see a cable rigger within the next 2 weeks' time. To try to offers her some relief today the left knee was instilled with a mixture of 5 mL's of 2% plain lidocaine , 80 mg of Depo-Medrol and 4 mg of Decadron. Informed consent was obtained prior to the procedure. The skin was prepped with alcohol solution. Band-Aid was applied after the injection. Patient tolerated the procedure well. I had a long discussion with the patient regarding potential further treatment in the form of additional injections including possible Visco supplementation or when the timing is right possibly proceeding with knee replacement surgery. Thank you very much for allowing me to seen care for Mrs. do. Sincerely, Brice Barnhart,DO Past Med Surg Social Fam HX - Past Medical History Medical history: diabetes, hyperlipidemia, hypertension Psychiatric history: no psych history - Past Surgical History Surgical History: , cholecystectomy, other - Social History Smoking Status: Former smoker Smokeless Tobacco Status: No Alcohol use: none Drug use: none - Family History Father Hx Family Cardiac Disorders: Yes Medications and Allergies Metformin HCl [Metformin HCl ER] 1,000 mg PO BID #0 12/13/14 [History] Pravastatin Sodium [Pravachol] 20 mg PO DAILY #0 12/13/14 [History] Lisinopril [Zestril] 20 mg PO DAILY 12/14/14 [History] Cholecalciferol (D-3) [Vitamin D] 2,000 unit PO DAILY 02/24/17 [History] GlipiZIDE [Glipizide Xl] 5 mg PO DAILY 02/24/17 [History] Ranitidine HCl [Zantac] 150 mg PO HS 02/24/17 [History] Insulin DETEMIR [Levemir] 10 unit SQ BID 30 Days [id number] 02/25/17 [Rx] Insulin LISPRO [HumaLOG] 5 units SQ TIDAC 30 Days vial 02/25/17 [Rx] OxyCODONE Immed Rel [Roxicodone 5 MG] 5 mg PO Q6HR PRN #30 tablet 02/25/17 [Rx] predniSONE [PredniSONE] 10 mg PO DAILY 21 Days tablet 02/25/17 [Rx] 3 Allergy/AdvReac Type Severity Reaction Status Date / Time No Known Allergies Allergy Verified 12/13/14 14:06 All Systems Reviewed: A 10-system review of systems was performed and is negative for pertinent findings except as documented above in the HPI. Physical Exam - Constitutional Vitals: Temp Pulse Resp BP Pulse Ox 98.2 F 80 14 153/77 95 04/13/17 10:57 04/13/17 10:57 04/13/17 10:57 04/13/17 10:57 04/13/17 10:57 Results - Labs Result Diagrams: 04/13/17 05:59 04/13/17 05:59 Labs: Abnormal lab results WBC 15.8 K/mcL (4.3-11.1) H 04/13/17 05:59 Neutrophils # 14.5 K/mcL (1.6-8.9) H 04/13/17 05:59 ESR 25 mm/hr (0-15) H 04/12/17 23:40 Carbon Dioxide 19 mEq/L (23-29) L 04/13/17 05:59 Glucose 362 mg/dL (70-105) H 04/13/17 05:59 POC Glucose 275 (58-89) H 04/13/17 11:15 Hemoglobin A1c 8.0 % (-5.6) H 04/13/17 05:59 Calculated Osmolality 301 (280-300) H 04/13/17 05:59 Total Bilirubin 1.4 mg/dL (0.3-1.0) H 04/12/17 23:40 C-Reactive Protein 11 mg/L (Less than 10) H 04/12/17 23:40 H & H 04/13/17 Range/Units 05:59 Hgb 12.3 (11.5-15.4) g/dL Hct 37.5 (35.3-44.9) % All other labs normal. Consult Discharge Plan - Plan Referrals: Ric Rasheed MD [Primary Care Provider] -
[2017-04-13] MEDS: Insulin LISPRO 300 UNITS/3 ML VIAL SQ SCH ×2 (12:10→17:16)
[2017-04-13] MEDS: *HR* Heparin 5,000 UNIT/ML VIAL SQ SCH ×2 (14:30→22:10)
[2017-04-14] MEDS: *HR* Heparin 5,000 UNIT/ML VIAL SQ SCH (05:42)
[2017-04-14 05:54] LABS: Hematocrit 33.6 % (35.3-44.9); Hemoglobin 11.1 g/dL (11.5-15.4); Mean Corpuscular Hemoglobin 29.2 pg (28.0-33.3); Mean Corpuscular Volume 88.4 fL (83.0-100.0); Platelet Count 210 K/mcL (140-400); Red Cell Distribution Width 14.1 % (11.5-14.5)
[2017-04-14] MEDS: Insulin LISPRO 300 UNITS/3 ML VIAL SQ SCH ×2 (08:22→12:24)
[2017-04-14] MEDS: Lisinopril 20 MG TABLET PO SCH (08:22)
[2017-04-14] MEDS: Insulin DETEMIR 100 UNIT/ML X5UNITS SQ SCH (08:54)
[2017-04-14] MEDS ORDERED: predniSONE 10 MG TABLET PO SCH (09:00)
--- NOTE | 2017-04-14 11:04 | Discharge Summary ---
Date of Encounter: 04/14/17 Time of Encounter: 11:02 - Discharge Diagnosis (1) Leg pain, bilateral Priority: Primary Status: Acute (2) HTN (hypertension) Priority: Secondary Status: Chronic Qualifiers: Hypertension type: essential hypertension Qualified Code(s): I10 - Essential (primary) hypertension (3) Insulin dependent type 2 diabetes mellitus Priority: Secondary Status: Acute (4) Osteoarthritis Priority: Secondary Status: Acute Qualifiers: Osteoarthritis location: knee Osteoarthritis type: unspecified Laterality : bilateral Qualified Code(s): M17.0 - Bilateral primary osteoarthritis of knee - Discharge Medications Home Medications: Metformin HCl [Metformin HCl ER] 1,000 mg PO BID #0 12/13/14 [History] Pravastatin Sodium [Pravachol] 20 mg PO DAILY #0 12/13/14 [History] Lisinopril [Zestril] 20 mg PO DAILY 12/14/14 [History] Cholecalciferol (D-3) [Vitamin D] 2,000 unit PO DAILY 02/24/17 [History] GlipiZIDE [Glipizide Xl] 5 mg PO DAILY 02/24/17 [History] Ranitidine HCl [Zantac] 150 mg PO HS 02/24/17 [History] Insulin DETEMIR [Levemir] 10 unit SQ BID 30 Days [id number] 02/25/17 [Rx] Insulin LISPRO [HumaLOG] 5 units SQ TIDAC 30 Days vial 02/25/17 [Rx] OxyCODONE Immed Rel [Roxicodone 5 MG] 5 mg PO Q6HR PRN #30 tablet 02/25/17 [Rx] predniSONE [PredniSONE] 10 mg PO DAILY 21 Days tablet 02/25/17 [Rx] Allergies/Adverse Reactions: 3 Allergy/AdvReac Type Severity Reaction Status Date / Time No Known Allergies Allergy Verified 12/13/14 14:06 Procedures/tests Complete & Pending: Procedures Performed prior 72 hours Category Date Time Status Venous Doppler [EV venous imaging LE LT] Routine Y 04/13/17 04:58 Completed Date of admission: 04/13/17 01:09 Primary care physician: Ric Rasheed MD Consults: 04/13/17 05:41 Consult to Occupational Therapy [CONS] Routine Comment: Evaluate, develop and implement POC Reason for Consult: leg pain Consult to Physical Therapy [CONS] Routine Comment: Evaluate, develop and implement POC Reason for Consult: leg pain 04/13/17 09:49 Consult to Orthopedic Surgery [CONS] Routine Consulting Provider: Brice Barnhart Reason for Consult: left knee pain Call Completed: Yes Discharging clinician: Mario Alberto Lindquist - Patient Status Disposition: Home, Self-Care Condition: Fair Functional capacity at discharge: uses cane/walker Overall status at discharge: patient is progressing back to baseline - Discharge Instructions Follow Up With: Ric Rasheed MD [Primary Care Provider] - - Diet and Activity Activity: increase activity as tolerated Diet: advance to your usual diet, low fat, low cholesterol Hospital course: Ms. Do is a 62 year old female presenting with 04/12/16 onset of bilateral lower extremity pain, past medical history of insulin dependent DM2, osteoarthritis, HTN, and polymyalgia rheumatica. Patient does not have a scada operator, PMR diagnosed in the outpatient setting after resolution of symtoms occurred with trial of prednisone. Denies upper extremity involvement. Denies similarity of pain to her osteoarthritis, denies tingling in her toes/ feet. She takes 30 mg of Prednisone daily. She was observed for further treatment of intractible leg pain. Patient does note that she was told in the past that she needs bilateral knee replacement. Orthopedic surgery was consulted. She was diagnosed with acute left leg pain secondary to advanced osteoarthritis. Weight loss was discussed with patient as she is morbidly obese. Plan is to wean down or steroids and to see a scada operator in next 2 weeks. She had left knee injected with Depo-Medrol and Decadron. Patient does not her pain is resolved. She is unsure if it is related to injection. She was discharged home in stable condition with relieved pain. - Time Spent with Patient Total time spent providing and/or coordinating discharge services: - Constitutional Vitals: Temp Pulse Resp BP Pulse Ox 98.0 F 76 16 138/86 99 04/14/17 07:39 04/14/17 07:39 04/14/17 07:39 04/14/17 07:39 04/14/17 07:39 General appearance: Present: A&O X 3, no acute distress - Head Head exam: Present: atraumatic, normocephalic - Eye Eye exam: Present: PERRL, conjuntiva pink, sclera anicteric Pupils: Present: PERRL - Neck Neck exam general surgery: Present: supple, trachea midline. Absent: lymphadenopathy - Respiratory Respiratory exam: Present: CTAB. Absent: accessory muscle use, rales, rhonchi, wheezes - Cardiovascular Cardiovascular exam: Present: RRR, +S1, +S2. Absent: diastolic murmur, gallop, rubs, systolic murmur - GI/Abdominal GI/Abdominal exam: Present: normal bowel sounds, soft, no peritoneal signs. Absent: distended, tenderness - Extremities Exam Extremities exam: Present: warm, radial pulses palpable and symmetrical. Absent : calf tenderness, cyanotic, pedal edema - Neurological Exam Neurological exam: Present: CN II-XII intact, oriented X3, no focal deficits. Absent: pronater drift, facial droop, speech deficit - Skin Skin exam: Present: dry, intact
[2017-04-14 11:56] VITALS: BP 160/77
== END 2017-04-14 13:27 | disposition home or self-care (01) ==
LOC: EMEROO 23:16 → 3ANU 23:16
PROVIDERS: ADMIT Family Medicine; ATTEND Student in an Organized Health Care Education/Training Program

== ENCOUNTER 2018-07-02 15:04 | Inpatient (IN) ==
[2018-07-02] MEDS ORDERED: Aspirin 81 MG TAB.CHEW PO ONE (15:49)
--- NOTE | 2018-07-02 16:19 | Emergency Department Note ---
Disposition Clinical Impression: Atypical chest pain Disposition: Admitted As Inpatient Condition: Fair Time of Disposition: 17:51 General Adult HPI - General Chief complaint: ED Chest Pain Stated complaint: Chest pain Time Seen by Provider: 07/02/18 15:48 Source: patient Mode of arrival: ambulatory Limitations: no limitations Nursing Notes Reviewed: Yes Vital Signs Reviewed: Yes - History of Present Illness HPI Narrative: This is a 63-year-old female with past medical history significant for hypertension, hyperlipidemia, diabetes mellitus who presents with chest pain that began yesterday night. Patient notes that she began feeling a mild chest pain in the center of her chest as of last evening, that radiated to the left side of her chest and up to the right side of her jaw Pain was rated 5 out of 10 at its worst, and is currently rated 3/10. Associated with headache, fati esvin, jaw pain. Describes pain as burning. Has taken a baby aspirin out of this morning. Also noted that she felt palpitations and had elevated heart rate as of this morning. Has not had similar presentation in the past. Denies fevers/chills, upper respiratory complaints, cough, congestion, difficulty breathing, wheezing, nausea, vomiting, diarrhea, dysuria, extremity weakness. Denies personal history of cardiac issues. Notes family history of cardiac problems. Came to the ER suggestion of her primary care physician. Patient additionally takes daily prednisone due to autoimmune condition (unspecified). Pt Subjective Complaint: Chest pain Onset (ago): day(s) (One day ago) Location: chest Radiation: neck Pain Severity: mild Pain Scale: 3 Quality: burning Consistency: constant Improves with: rest Worsens with: eating Associated symptoms: Reports: chest pain, headaches, loss of appetite, malaise, weakness. Denies: confusion, cough, diaphoresis, fever/chills, nausea/vomiting, rash, shortness of breath Treatments Prior to Arrival: Aspirin - Related Data Home Medications Medication Instructions Recorded Confirmed Metformin HCl [Metformin ER 1,000 mg PO BID #0 12/13/14 04/13/17 Gastric] Pravastatin Sodium [Pravachol] 20 mg PO DAILY #0 12/13/14 04/13/17 Lisinopril [Zestril] 20 mg PO DAILY 12/14/14 04/13/17 Cholecalciferol (D-3) [Vitamin D] 2,000 unit PO DAILY 02/24/17 04/13/17 GlipiZIDE [Glipizide Xl] 5 mg PO DAILY 02/24/17 04/13/17 raNITIdine HCl [Zantac] 150 mg PO HS 02/24/17 04/13/17 Previous Rx's Medication Instructions Recorded Insulin DETEMIR [Levemir] 10 unit SQ BID 30 Days [id number] 02/25/17 Insulin LISPRO [HumaLOG] 5 units SQ TIDAC 30 Days vial 02/25/17 OxyCODONE Immed Rel [Roxicodone 5 5 mg PO Q6HR PRN #30 tablet 02/25/17 MG] predniSONE [PredniSONE] 10 mg PO DAILY 21 Days tablet 02/25/17 Allergies Allergy/AdvReac Type Severity Reaction Status Date / Time No Known Allergies Allergy Verified 12/13/14 14:06 All systems ED: reviewed and negative except as stated. Constitutional: Denies: fever, chills, weakness, night sweats Eyes: Denies: vision change ENT ED: Denies: hearing loss, congestion Cardiovascular: Reports: chest pain, palpitations. Denies: dyspnea on exertion, orthopnea, syncope Respiratory: Denies: cough, dyspnea, wheezes, hemoptysis Gastrointestinal: Denies: abdominal pain, nausea, vomiting, diarrhea Genitourinary: Denies: dysuria Musculoskeletal: Denies: back pain, neck pain Integumentary: Denies: rash Neurological: Reports: headache. Denies: numbness Psychiatric: Denies: anxiety, depression Endocrine: Reports: fatigue Past Medical History - Past Medical History Attestation: Yes The following information was validated with the patient. Source: patient, old records reviewed Medical history: Reports: diabetes, hyperlipidemia, hypertension Surgical history: Reports: , cholecystectomy, other Psychiatric history: Reports: no psych history MASCARA MOLDER history: Reports: no MASCARA MOLDER history - Social History Smoking Status: Former smoker Smokeless Tobacco Status: No Alcohol use: Reports: none Drug use: Reports: none Physical Exam - General Limitations: no limitations General appearance: alert, in no apparent distress - Head Head exam: atraumatic, normocephalic, normal inspection - Eye Eye exam: Present: normal appearance, PERRL, EOMI - ENT ENT exam: normal exam, normal oropharynx, mucous membranes moist - Neck Neck exam: Present: normal inspection - Chest Chest inspection: Present: normal inspection, symmetric chest wall rise - Respiratory Respiratory exam: Present: normal lung sounds bilaterally - Cardiovascular Cardiovascular exam: Present: regular rate, normal rhythm, normal heart sounds, +S1, +S2 - Abdominal Exam Abdominal exam: Present: soft, Non-Tender, normal bowel sounds. Absent: tenderness, distention, guarding, rebound - Extremities Exam Extremities exam: Present: normal inspection, full ROM, normal capillary refill. Absent: tenderness - Back Exam Back exam: Present: normal inspection. Absent: CVA tenderness (R), CVA tenderness (L) - Neurological Exam Neurological exam: Present: alert, oriented X3, CN II-XII intact - Psychiatric Psychiatric exam: Present: normal affect, normal mood - Skin Skin exam: Present: warm, dry, intact, normal color Course - Reevaluation(s) Reevaluation #1: Patient seen and examined with Dr. Hernandez and Dr. Ayala. History is obtained. Vitals are initially hemodynamically stable. Labs were drawn. Chest x-ray was negative. CBC and BMP were benign. Troponin was negative. Heart score = 5. We will discuss with patient potential options, and evaluate further. Time: 16:57 Reevaluation #2: After further discussion with patient, given symptoms and history, risk factors, age, patient should benefit from continued observation and possible admission. Spoke with hospitalist Dr. Tamez, who agreed to admit patient to hospital service for further observation. Time: 17:47 Vital Signs Temperature 98.4 F 07/02/18 15:19 Pulse Rate 85 07/02/18 15:19 Respiratory Rate 18 07/02/18 15:19 Blood Pressure 122/66 07/02/18 15:19 O2 Sat by Pulse Oximetry 95 07/02/18 15:19 Temperature 98.4 F 07/02/18 15:19 Pulse Rate 85 07/02/18 15:19 Respiratory Rate 18 07/02/18 15:19 Blood Pressure 122/66 07/02/18 15:19 O2 Sat by Pulse Oximetry 95 07/02/18 15:19 Oxygen Delivery Oxygen Delivery Room Air Medical Decision Making - MDM Narrative Medical decision making narrative: This is a 63-year-old female with past medical history significant for hypertension, hyperlipidemia, diabetes who presents with chest pain that began yesterday. Chest pain described as burning, midsternal, radiating to jaw. Pain is persisted throughout the day today though it is improved. Patient has only taken aspirin. Physical exam is benign. Lab work was essentially negative. Troponin was negative. EKG was essentially benign. However, patient has history of autoimmune disease (unknown which) for which he takes daily prednisone. Patient's heart score = 5. After discussion with patient, she feels she would benefit from observation. Spoke with Dr. Tamez who accepted patient hospitalist service. Likely differential includes atypical chest pain, ACS, GERD. - Differential Diagnosis Atypical Chest Pain; GERD; ACS - Medical Records Medical records reviewed: Yes I reviewed the patient's medical records. - Lab Data Lab results reviewed: Yes I reviewed the patient's lab results. Result diagrams: 07/02/18 15:59 07/02/18 15:59 Lab Results 07/02/18 07/02/18 07/02/18 Range/Units 15:59 15:59 15:59 WBC 9.3 (4.3-11.1) K/mcL RBC 4.12 (3.82-4.97) M/mcL Hgb 11.4 L (11.5-15.4) g/dL Hct 35.0 L (35.3-44.9) % MCV 85.0 (83.0-100.0) fL MCH 27.7 L (28.0-33.3) pg MCHC 32.6 (31.6-35.5) g/dL RDW 14.6 H (11.5-14.5) % Plt Count 365 (140-400) K/mcL MPV 9.4 (9.4-12.4) fL Immature Gran % 0.4 (0-4) % Seg Neutrophils % 71.6 % Lymphocytes % 19.8 % Monocytes % 7.4 % Eosinophils % 0.4 % Basophils % 0.4 % Neutrophils # 6.6 (1.6-8.9) K/mcL Lymphocytes # 1.8 (0.6-4.6) K/mcL Monocytes # 0.7 (0.0-1.3) K/mcL Eosinophils # 0.0 (0.0-0.6) K/mcL Basophils # 0.0 (0.0-0.2) K/mcL PT 11.9 (9.4-12.1) Seconds INR 1.1 APTT 33.8 (26.0-36.0) Seconds Sodium (136-145) mEq/L Potassium (3.5-5.1) mEq/L Chloride (98-107) mEq/L Carbon Dioxide (23-29) mEq/L BUN (8-23) mg/dL Creatinine (0.60-1.20) mg/dL Est GFR ( Amer) (> 60) Est GFR (Non-Af Amer) (> 60) BUN/Creatinine Ratio (6-26) Glucose (70-105) mg/dL Calculated Osmolality (280-300) Calcium (8.6-10.3) mg/dL Troponin I (< 0.04) ng/mL B-Natriuretic Peptide 75 (Less than 100) pg/mL 07/02/18 Range/Units 15:59 WBC (4.3-11.1) K/mcL RBC (3.82-4.97) M/mcL Hgb (11.5-15.4) g/dL Hct (35.3-44.9) % MCV (83.0-100.0) fL MCH (28.0-33.3) pg MCHC (31.6-35.5) g/dL RDW (11.5-14.5) % Plt Count (140-400) K/mcL MPV (9.4-12.4) fL Immature Gran % (0-4) % Seg Neutrophils % % Lymphocytes % % Monocytes % % Eosinophils % % Basophils % % Neutrophils # (1.6-8.9) K/mcL Lymphocytes # (0.6-4.6) K/mcL Monocytes # (0.0-1.3) K/mcL Eosinophils # (0.0-0.6) K/mcL Basophils # (0.0-0.2) K/mcL PT (9.4-12.1) Seconds INR APTT (26.0-36.0) Seconds Sodium 138 (136-145) mEq/L Potassium 4.1 (3.5-5.1) mEq/L Chloride 104 (98-107) mEq/L Carbon Dioxide 24 (23-29) mEq/L BUN 22 (8-23) mg/dL Creatinine 0.81 (0.60-1.20) mg/dL Est GFR ( Amer) > 60 (> 60) Est GFR (Non-Af Amer) > 60 (> 60) BUN/Creatinine Ratio 27 H (6-26) Glucose 152 H (70-105) mg/dL Calculated Osmolality 292 (280-300) Calcium 10.3 (8.6-10.3) mg/dL Troponin I < 0.03 (< 0.04) ng/mL B-Natriuretic Peptide (Less than 100) pg/mL - Radiology Data Radiology results reviewed: Yes I reviewed the patient's radiology results. - EKG Data EKG #1 EKG attestation: Yes I reviewed and interpreted this EKG. EKG results narrative: HR = 76, RI = 140, QRS = 101, QTC = 4:15. Normal sinus rhythm. Left axis deviation. No acute ST changes. Attestation Statement - Attestation Attestation: I, Ambrocio Ayala DO, examined this patient [id number] and my medical decision-making was reviewed with Marti Holden DO , Resident Physician. I agree with the documented findings, disposition and treatment plan as described except to the extent set forth below. Please see my progress notes for details.
[2018-07-02 16:28] LABS: Basophils % 0.4 %; Eosinophils % 0.4 %; Hemoglobin 11.4 g/dL (11.5-15.4); Immature Granulocytes % 0.4 % (0-4); Lymphocytes # 1.8 K/mcL (0.6-4.6); Lymphocytes % 19.8 %; Mean Corpuscular HGB Conc 32.6 g/dL (31.6-35.5); Mean Corpuscular Hemoglobin 27.7 pg (28.0-33.3); Mean Platelet Volume 9.4 fL (9.4-12.4); Monocytes # 0.7 K/mcL (0.0-1.3); Monocytes % 7.4 %; Neutrophils # 6.6 K/mcL (1.6-8.9); Platelet Count 365 K/mcL (140-400); Red Blood Count 4.12 M/mcL (3.82-4.97); Red Cell Distribution Width 14.6 % (11.5-14.5); Segmented Neutrophils % 71.6 %
[2018-07-02 16:35] LABS: INR 1.1; Prothrombin Time 11.9 Seconds (9.4-12.1)
[2018-07-02 16:38] LABS: Activated Partial Thrombo Time 33.8 Seconds (26.0-36.0)
[2018-07-02 16:54] LABS: BUN/Creatinine Ratio 27 (6-26); Blood Urea Nitrogen 22 mg/dL (8-23); Calcium 10.3 mg/dL (8.6-10.3); Carbon Dioxide 24 mEq/L (23-29); Chloride 104 mEq/L (98-107); Glucose 152 mg/dL (70-105); Osmolality,Calculated 292 (280-300); Potassium 4.1 mEq/L (3.5-5.1); Sodium 138 mEq/L (136-145); Troponin I < 0.03 ng/mL (< 0.04); eGFR For Non-African Americans > 60 (> 60)
--- NOTE | 2018-07-02 18:02 | Emergency Department Note ---
Disposition Clinical Impression: Atypical chest pain Disposition: Admitted As Inpatient Condition: Fair Referrals: Ric Rasheed MD [Partnered Physician] - Forms: ED Satisfaction Letter Time of Disposition: 18:02 General Adult HPI - General Chief complaint: ED Chest Pain Stated complaint: Chest pain Time Seen by Provider: 07/02/18 15:48 Source: patient Mode of arrival: ambulatory Limitations: no limitations - History of Present Illness Location: chest Pain Scale: 3 Quality: burning Improves with: rest Worsens with: eating Associated symptoms: Reports: chest pain, headaches, loss of appetite, malaise, weakness. Denies: confusion, cough, diaphoresis, fever/chills, nausea/vomiting, rash, shortness of breath Treatments Prior to Arrival: Aspirin - Related Data Home Medications Medication Instructions Recorded Confirmed Metformin HCl [Metformin ER 1,000 mg PO BID #0 12/13/14 04/13/17 Gastric] Pravastatin Sodium [Pravachol] 20 mg PO DAILY #0 12/13/14 04/13/17 Lisinopril [Zestril] 20 mg PO DAILY 12/14/14 04/13/17 Cholecalciferol (D-3) [Vitamin D] 2,000 unit PO DAILY 02/24/17 04/13/17 GlipiZIDE [Glipizide Xl] 5 mg PO DAILY 02/24/17 04/13/17 raNITIdine HCl [Zantac] 150 mg PO HS 02/24/17 04/13/17 Previous Rx's Medication Instructions Recorded Insulin DETEMIR [Levemir] 10 unit SQ BID 30 Days [id number] 02/25/17 Insulin LISPRO [HumaLOG] 5 units SQ TIDAC 30 Days vial 02/25/17 OxyCODONE Immed Rel [Roxicodone 5 5 mg PO Q6HR PRN #30 tablet 02/25/17 MG] predniSONE [PredniSONE] 10 mg PO DAILY 21 Days tablet 02/25/17 Allergies Allergy/AdvReac Type Severity Reaction Status Date / Time No Known Allergies Allergy Verified 12/13/14 14:06 Constitutional: Denies: fever, chills, weakness, night sweats Eyes: Denies: vision change ENT ED: Denies: hearing loss, congestion Cardiovascular: Reports: chest pain, palpitations. Denies: dyspnea on exertion, orthopnea, syncope Respiratory: Denies: cough, dyspnea, wheezes, hemoptysis Gastrointestinal: Denies: abdominal pain, nausea, vomiting, diarrhea Genitourinary: Denies: dysuria Musculoskeletal: Denies: back pain, neck pain Integumentary: Denies: rash Neurological: Reports: headache. Denies: numbness Psychiatric: Denies: anxiety, depression Endocrine: Reports: fatigue Past Medical History - Past Medical History Medical history: Reports: diabetes, hyperlipidemia, hypertension Surgical history: Reports: , cholecystectomy, other Psychiatric history: Reports: no psych history ENGLISH COMPOSITION TEACHER history: Reports: no ENGLISH COMPOSITION TEACHER history - Social History Smoking Status: Former smoker Smokeless Tobacco Status: No Alcohol use: Reports: none Drug use: Reports: none Physical Exam - General Limitations: no limitations General appearance: alert, in no apparent distress Course Vital Signs Temperature 98.4 F 07/02/18 15:19 Pulse Rate 85 07/02/18 15:19 Respiratory Rate 18 07/02/18 15:19 Blood Pressure 122/66 07/02/18 15:19 O2 Sat by Pulse Oximetry 95 07/02/18 15:19 Temperature 98.4 F 07/02/18 15:19 Pulse Rate 85 07/02/18 15:19 Respiratory Rate 18 07/02/18 15:19 Blood Pressure 122/66 07/02/18 15:19 O2 Sat by Pulse Oximetry 95 07/02/18 15:19 Oxygen Delivery Oxygen Delivery Room Air Medical Decision Making - Lab Data Result diagrams: 07/02/18 15:59 07/02/18 15:59 Lab Results 07/02/18 07/02/18 07/02/18 Range/Units 15:59 15:59 15:59 WBC 9.3 (4.3-11.1) K/mcL RBC 4.12 (3.82-4.97) M/mcL Hgb 11.4 L (11.5-15.4) g/dL Hct 35.0 L (35.3-44.9) % MCV 85.0 (83.0-100.0) fL MCH 27.7 L (28.0-33.3) pg MCHC 32.6 (31.6-35.5) g/dL RDW 14.6 H (11.5-14.5) % Plt Count 365 (140-400) K/mcL MPV 9.4 (9.4-12.4) fL Immature Gran % 0.4 (0-4) % Seg Neutrophils % 71.6 % Lymphocytes % 19.8 % Monocytes % 7.4 % Eosinophils % 0.4 % Basophils % 0.4 % Neutrophils # 6.6 (1.6-8.9) K/mcL Lymphocytes # 1.8 (0.6-4.6) K/mcL Monocytes # 0.7 (0.0-1.3) K/mcL Eosinophils # 0.0 (0.0-0.6) K/mcL Basophils # 0.0 (0.0-0.2) K/mcL PT 11.9 (9.4-12.1) Seconds INR 1.1 APTT 33.8 (26.0-36.0) Seconds Sodium (136-145) mEq/L Potassium (3.5-5.1) mEq/L Chloride (98-107) mEq/L Carbon Dioxide (23-29) mEq/L BUN (8-23) mg/dL Creatinine (0.60-1.20) mg/dL Est GFR ( Amer) (> 60) Est GFR (Non-Af Amer) (> 60) BUN/Creatinine Ratio (6-26) Glucose (70-105) mg/dL Calculated Osmolality (280-300) Calcium (8.6-10.3) mg/dL Troponin I (< 0.04) ng/mL B-Natriuretic Peptide 75 (Less than 100) pg/mL 07/02/18 Range/Units 15:59 WBC (4.3-11.1) K/mcL RBC (3.82-4.97) M/mcL Hgb (11.5-15.4) g/dL Hct (35.3-44.9) % MCV (83.0-100.0) fL MCH (28.0-33.3) pg MCHC (31.6-35.5) g/dL RDW (11.5-14.5) % Plt Count (140-400) K/mcL MPV (9.4-12.4) fL Immature Gran % (0-4) % Seg Neutrophils % % Lymphocytes % % Monocytes % % Eosinophils % % Basophils % % Neutrophils # (1.6-8.9) K/mcL Lymphocytes # (0.6-4.6) K/mcL Monocytes # (0.0-1.3) K/mcL Eosinophils # (0.0-0.6) K/mcL Basophils # (0.0-0.2) K/mcL PT (9.4-12.1) Seconds INR APTT (26.0-36.0) Seconds Sodium 138 (136-145) mEq/L Potassium 4.1 (3.5-5.1) mEq/L Chloride 104 (98-107) mEq/L Carbon Dioxide 24 (23-29) mEq/L BUN 22 (8-23) mg/dL Creatinine 0.81 (0.60-1.20) mg/dL Est GFR ( Amer) > 60 (> 60) Est GFR (Non-Af Amer) > 60 (> 60) BUN/Creatinine Ratio 27 H (6-26) Glucose 152 H (70-105) mg/dL Calculated Osmolality 292 (280-300) Calcium 10.3 (8.6-10.3) mg/dL Troponin I < 0.03 (< 0.04) ng/mL B-Natriuretic Peptide (Less than 100) pg/mL Attestation Statement - Attestation Attestation: I, Ambrocio Ayala DO, examined this patient [id number] and my medical decision-making was reviewed with Marti Holden DO , Resident Physician. I agree with the documented findings, disposition and treatment plan as described except to the extent set forth below. Please see my progress notes for details. 63-year-old female presents emergency room for evaluation of intermittent chest discomfort and pain. Patient notices a symptoms intermittently throughout the day. She also had some right-sided jaw pain she is never had symptoms of this in the past. She has no specific history of coronary artery disease or previous myocardial infarction. Her mother had identical presentation when she had her heart attack multiple years ago. Patient denies any falls trauma or injury. Currently denying chest pain shortness of breath headache or vision change. She has not had any nausea vomiting or diarrhea. No fevers no chills. Patient is otherwise clinical stable. Immediate intervention is not required at this time. Patient's heart score is 4 prior to the evaluation. Lungs are clear heart is regular abdomen is soft. Patient speaking in full sentences. Mucous membranes are moist. She walked around the emergency room without any difficulty. Patient with cardiac evaluation completed this time including EKG CBC chemistry troponin and BNP. Aspirin will be given. Symptomatically control be provided if the patient has other symptoms or complaints. Disposition will most likely be admission secondary to the presentation of the high-risk features. Otherwise the patient is clinically stable. See detailed documentation the physical exam, medical intervention, medical decision-making and disposition in the resident physician's note. No critical care applied the patient's treatment course at this time. [id number] Patient was discussed with the hospitalist Dr. Tamez. No other recommendations requested this time. Patient will be admitted for cardiac evaluation and concern for angina-like presentation. No other acute concerns or issues at this time. Patient will be monitoring emergency room until the admission process is completed
[2018-07-02] MEDS ORDERED: GI Cocktail 40 ML EACH PO PRN (21:42)
[2018-07-02] MEDS ORDERED: *HR* Dextrose 50 % in Water (Syg) 50 ML SYRINGE IVP PRN (21:43)
[2018-07-02] MEDS ORDERED: Dextrose Gel 15 GM/37.5 ML TUBE PO PRN ×2 (21:43)
[2018-07-02] MEDS ORDERED: D5% in Water 1,000 ML IVC PRN (21:43)
[2018-07-02] MEDS ORDERED: Acetaminophen 325 MG TABLET PO PRN (21:46)
[2018-07-02] MEDS ORDERED: Ondansetron 4 MG/2 ML VIAL IVP PRN (21:46)
[2018-07-02] MEDS ORDERED: Naloxone 0.4 MG/ML INJ IVP PRN (21:46)
[2018-07-02] MEDS ORDERED: Nitroglycerin 0.4 MG TAB.SUBL SL PRN (21:49)
[2018-07-02] MEDS: *HR* Heparin 5,000 UNIT/ML VIAL SQ SCH (22:24)
[2018-07-02] MEDS: Famotidine 20 MG TABLET PO SCH (22:24)
[2018-07-02] MEDS: Insulin LISPRO 300 UNITS/3 ML VIAL SQ SCH (22:25)
[2018-07-03] MEDS: Insulin LISPRO 300 UNITS/3 ML VIAL SQ SCH ×6 (00:14→21:24)
--- NOTE | 2018-07-03 00:27 | Internal Med History&Physical ---
Date of Encounter: 07/02/18 Time of Encounter: 20:45 Internal Medicine - H&P: HPI Chief complaint: CP Admitted From: Emergency Dept Plans for Post Hospital Care: Home History of present illness: Ms. Do is a 63 year old female w/PMH of diabetes, HTN, HLD, and GERD presents from the ED with chief complaint of chest pain that began yesterday evening at approximately 20:30. Patient also reports she has been tired for the past 2-3 weeks. States chest pain came on at rest and began to center chest and moved to left breast with radiation to right jaw. Familial history includes father who had CVA at 39 and of an [place] at 52. Mother of complications from bypass surgery. Sister has hx of [place]. Associated symptoms: Nausea and mild SOB. No alleviating or aggravating factors. Patient denies recent illness, fever, chills, vomiting, headache, changes in vision, unusual bleeding, abdominal pain, diarrhea, constipation, dizziness, lightheadedness, numbness, tingling, pre- syncope, or syncope. Past Med Surg Social Fam HX - Past Medical History Source: patient, old records reviewed, obtained from family Medical history: diabetes, GERD, hyperlipidemia, hypertension Additional medical history: Lupus Psychiatric history: no psych history - Past Surgical History Surgical History: , cholecystectomy, other Additional surgical history: knee replacement - Social History Smoking Status: Former smoker Packs per day: 1/2 PPD - Reports quitting in 1995 Smokeless Tobacco Status: No Alcohol use: none Drug use: none Current living situation: Home, With Family Activity Level: Independent ambulation Recent Out of Country Travel Within the Last 8 Weeks: No Exposure or Possible Exposure to Illness During Travel: No - Family History Mother Race: Family Member Ethnicity: Non- Living Status: Age at : 83 Cause of : Complications following bypass surgery Hx Family Cardiac Disorders: Yes (CAD) Father Race: Family Member Ethnicity: Non- Living Status: Age at : 52 Cause of : [place] Hx Family Cardiac Disorders: Yes (CVA, [place]) Hx Family Neurologic Disorders: Yes (CVA @ 39) Sister Race: Family Member Ethnicity: Non- Living Status: Age at : 52 Cause of : Lupus Hx Family Cardiac Disorders: Yes ([place]) Hx Family Autoimmune Disorders: Yes (Lupus) Internal Medicine - H&P: Meds Metformin HCl [Metformin ER Gastric] 1,000 mg PO BID #0 12/13/14 [History] Pravastatin Sodium [Pravachol] 20 mg PO DAILY #0 12/13/14 [History] Cholecalciferol (D-3) [Vitamin D] 2,000 unit PO DAILY 02/24/17 [History] GlipiZIDE [Glipizide Xl] 5 mg PO DAILY 02/24/17 [History] raNITIdine HCl [Zantac] 150 mg PO HS 02/24/17 [History] Insulin LISPRO [HumaLOG] 5 units SQ TIDAC 30 Days vial 02/25/17 [Rx] Amlodipine Besylate 10 mg PO DAILY 07/02/18 [History] Carvedilol [Coreg] 6.25 mg PO BID 07/02/18 [History] Duloxetine HCl [Cymbalta] 60 mg PO DAILY 07/02/18 [History] Insulin Glargine [Lantus] 20 unit SQ HS 07/02/18 [History] predniSONE [PredniSONE] 7 mg PO DAILY 07/02/18 [History] Allergy/AdvReac Type Severity Reaction Status Date / Time No Known Allergies Allergy Verified 12/13/14 14:06 All Systems PM: A 10-system review of systems was performed and is negative for pertinent findings except as documented above in the HPI. - Constitutional Constitutional: as per HPI, no chills, no fever(s), no night sweats - EENT Eyes: no change in vision, no discharge, no pain, no photophobia Ears: no ear discharge, no ear pain, no tinnitus Nose, mouth and throat: no dysphagia, no nasal discharge, no neck pain, no sore throat - Breasts Breasts: as per HPI - Cardiovascular Cardiovascular ROS IM: as per HPI, chest pain, dyspnea on exertion, palpitations, no diaphoresis, no dyspnea, no lightheadedness, no syncope - Respiratory Respiratory: as per HPI, dyspnea, dyspnea on exertion, no cough, no wheezing, no excessive phlegm production - Gastrointestinal Gastrointestinal: as per HPI, nausea, no abdominal pain, no diarrhea, no hematemesis, no hematochezia, no melena, no vomiting - Genitourinary Genitourinary: no change in urinary stream, no dysuria, no flank pain, no hematuria Menstruation: as per HPI - Musculoskeletal Musculoskeletal ROS IM: no numbness, no tingling - Integumentary Integumentary IM: no rash, no unusual bruising - Neurological Neurological ROS: no confusion, no convulsions, no focal weakness, no numbness, no tingling, no tremor(s) - Psychiatric Psychiatric: as per HPI - Endocrine Endocrine IM: as per HPI - Hematologic/Lymphatic Hematologic/Lymphatic: no easy bruising - Allergic/Immunologic Allergic/Immunologic: as per HPI - Constitutional Vitals: Temp Pulse Resp BP Pulse Ox 98.8 F 81 16 113/59 95 07/02/18 23:20 07/02/18 23:20 07/02/18 23:20 07/02/18 23:20 07/02/18 23:20 General appearance: Present: cooperative, mild distress, A&O X 3, morbidly obese, pleasant, answers questions appropriately Exam: Patient examined at bedside. Pt. states she has intermittent chest discomfort but her jaw pain in the right jaw is constant. Mild SOB. No nausea on exam. Pt. denies any other sx or complaints during exam. VS: 98.8F temp, HR 81, RR 16, BP 113/59, SPO2 95% on room air. - Head Head exam: Present: atraumatic, normocephalic - Eye Eye exam: Present: PERRL, conjuntiva pink, sclera anicteric Pupils: Present: PERRL - ENT ENT exam: Present: normal exam - Neck Neck exam general surgery: Present: supple, trachea midline. Absent: lymphadenopathy - Respiratory Respiratory exam: Present: CTAB. Absent: accessory muscle use, rales, rhonchi, wheezes - Cardiovascular Cardiovascular exam: Present: RRR, +S1, +S2. Absent: diastolic murmur, gallop, rubs, systolic murmur - GI/Abdominal GI/Abdominal exam: Present: normal bowel sounds, soft, no peritoneal signs. Absent: distended, tenderness - Rectal Rectal exam: Present: deferred - Additional comments: exam deferred. - Extremities Exam Extremities exam: Present: pedal edema, warm, radial pulses palpable and symmetrical. Absent: calf tenderness, cyanotic - Back Exam Back exam: Present: normal inspection - Neurological Exam Neurological exam: Present: alert, CN II-XII intact, oriented X3, no focal deficits. Absent: pronater drift, facial droop, speech deficit - Psychiatric Psychiatric exam: Present: normal affect, normal mood - Skin Skin exam: Present: dry, intact Internal Med - H&P Results - Labs CBC & Chem 7: 07/02/18 15:59 07/02/18 15:59 Labs: Short CBC 07/02/18 Range/Units 15:59 WBC 9.3 (4.3-11.1) K/mcL Hgb 11.4 L (11.5-15.4) g/dL Hct 35.0 L (35.3-44.9) % Plt Count 365 (140-400) K/mcL Neutrophils # 6.6 (1.6-8.9) K/mcL BMP 07/02/18 15:59 Sodium 138 Potassium 4.1 Chloride 104 Carbon Dioxide 24 BUN 22 Creatinine 0.81 Glucose 152 H Calcium 10.3 Cardiac Enzymes 07/02/18 07/02/18 Range/Units 15:59 22:29 Troponin I < 0.03 < 0.03 (< 0.04) ng/mL - EKG Data EKG shows normal: sinus rhythm - EKG Data Prior EKG available for review: yes EKG comments: 07/03/18 00:32 EKG dated 07/02/18 10:38 show sinus rhythm with possible left anterior fascicular block. EKG dated 07/02/18 15:52 shows sinus rhythm with abnormal R-wave progression in late transition and left ventricular hypertrophy. - Impressions ITS Impressions Chest X-Ray 07/02/18 15:49 IMPRESSION: No radiographic evidence of acute cardiopulmonary disease. D/ / Franklin Parmar / Franklin Parmar Interpreting Provider: Franklin Parmar - Diagnostic Studies Chest x-ray Additional comments: Impressions Chest X-Ray 07/02/18 15:49 IMPRESSION: No radiographic evidence of acute cardiopulmonary disease. D/ / Franklin Parmar / Franklin Parmar Interpreting Provider: Franklin Parmar - Assessment and Plan (1) Atypical chest pain Current Visit: Yes Status: Acute Assessment and plan: Acute and atypical CP that pt. reports began yesterday evening at approximately 20:30. Patient also reports she has been tired for the past 2-3 weeks. States chest pain came on at rest and began to center chest and moved to left breast with radiation to right jaw. Familial history includes father who had CVA at 39 and of an [place] at 52. Mother of complications from bypass surgery. Sister has hx of [place]. Associated symptoms: Nausea and mild SOB. No alleviating or aggravating factors. Initial troponin <0.03. Trending. ASA. 40 mg Pravastatin now. Will continue pts. home dose of Pravastatin 20 mg tomorrow HS. SL nitro PRN. CXR shows no radiographic evidence of acute cardiopulmonary disease. Echocardiogram. Nothing by mouth at midnight in preparation for a.m. nuclear pharm stress test if troponins remain WNL. Consider cardiology consult if troponins, echocardiogram, and/or stress test results abnormal. Patient is high risk for cardiac event and further morbidity based on current atypical chest pain symptoms that came on at rest, strong familial history of CAD (father of [place] at age 52), hx; and current risk factors of HTN, HLD, DM, former smoker, and morbid obesity. Observation. (2) SOB (shortness of breath) Current Visit: Yes Status: Acute Assessment and plan: Acute SOB accompanying CP sx. Pt. denies home O2 use. Supplemental O2 w/titration and SpO2 monitoring. (3) Nausea Current Visit: Yes Status: Acute Assessment and plan: Acute nausea accompanying CP sx. IVP Zofran 4 mg every 8 hour when necessary for nausea and vomiting ordered. (4) HTN (hypertension) Current Visit: Yes Status: Chronic Assessment and plan: Hx of chronic HTN. Monitor pt. and VS. continue patient's HTN medications. Qualifiers: Hypertension type: essential hypertension Qualified Code(s): I10 - Essential (primary) hypertension (5) HLD (hyperlipidemia) Current Visit: Yes Status: Chronic Assessment and plan: Hx of chronic HLD. Lipid panel in a.m. labs. Continue patient's pravastatin. Qualifiers: Hyperlipidemia type: pure hypercholesterolemia Qualified Code(s): E78.00 - Pure hypercholesterolemia, unspecified; E78.0 - Pure hypercholesterolemia (6) Diabetes Current Visit: Yes Status: Chronic Assessment and plan: Hx of chronic DM controlled by insulin and oral antihyperglycemic medications. Will hold patient's medications and administer low-dose correction sliding scale insulin with hypoglycemic protocol. A1c in a.m. labs. BG checks before meals at bedtime. 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 Tums ordered. GI cocktail PRN. Continue pts. Zantac. Qualifiers: Esophagitis presence: esophagitis presence not specified Qualified Code(s): K21.9 - Gastro-esophageal reflux disease without esophagitis (8) DVT prophylaxis Current Visit: Yes Status: Acute Assessment and plan: Heparin 5,000 units SQ Q8HR for DVT prophylxis. Monitor patient for signs of bleeding. - Time Spent With Patient Total time spent is greater than 50% in coordination of care (as documented) at patient's floor/unit and/or counseling patient: Greater than 35 minutes
[2018-07-03] MEDS ORDERED: *HR* Morphine 2 MG/ML SYRINGE IVP PRN (03:31)
[2018-07-03 05:06] LABS: Hematocrit 32.2 % (35.3-44.9); Hemoglobin 10.6 g/dL (11.5-15.4); Mean Corpuscular HGB Conc 32.9 g/dL (31.6-35.5); Mean Corpuscular Hemoglobin 27.5 pg (28.0-33.3); Mean Corpuscular Volume 83.6 fL (83.0-100.0); Mean Platelet Volume 9.7 fL (9.4-12.4); Platelet Count 329 K/mcL (140-400); Red Blood Count 3.85 M/mcL (3.82-4.97); Red Cell Distribution Width 14.9 % (11.5-14.5)
[2018-07-03 05:27] LABS: BUN/Creatinine Ratio 28 (6-26); Blood Urea Nitrogen 21 mg/dL (8-23); Calcium 9.4 mg/dL (8.6-10.3); Carbon Dioxide 24 mEq/L (23-29); Chloride 106 mEq/L (98-107); Chol/HDL Ratio 3.2 (0-4.9); Cholesterol 186 mg/dL (< 200); Glucose 101 mg/dL (70-105); HDL Cholesterol 58 mg/dL (40-59); LDL Cholesterol,Calculated 91 mg/dL (0-99); Magnesium 1.7 mg/dL (1.6-2.6); Osmolality,Calculated 295 (280-300); Potassium 3.9 mEq/L (3.5-5.1); Sodium 141 mEq/L (136-145); Triglycerides 184 mg/dL (< 150); Troponin I < 0.03 ng/mL (< 0.04); eGFR For Non-African Americans > 60 (> 60)
[2018-07-03] MEDS: *HR* Heparin 5,000 UNIT/ML VIAL SQ SCH ×3 (06:00→21:27)
[2018-07-03] MEDS ORDERED: Regadenoson 0.4 MG/5 ML SYRINGE IVP ONE (06:10)
[2018-07-03] MEDS ORDERED: amLODIPine 5 MG TABLET PO SCH (09:00)
[2018-07-03] MEDS: predniSONE 5 MG TABLET PO SCH (10:12)
[2018-07-03] MEDS: Cholecalciferol (D-3) 1,000 UNIT TABLET PO SCH (10:12)
[2018-07-03] MEDS: predniSONE 1 MG TABLET PO SCH (10:12)
[2018-07-03] MEDS: Aspirin Enteric Coated 81 MG Tablet PO SCH (10:13)
[2018-07-03 10:30] LABS: Estimated Average Glucose 160 mg/dl; Hemoglobin A1C 7.2 %
--- NOTE | 2018-07-03 16:53 | Internal Med Progress Note ---
Hospitalist Progress Note - Encounter Date of Encounter: 07/03/18 Time of Encounter: 11:00 - Subjective Interval History: Patient was seen and examined at bedside he denies any chest pain she just completed first part of daily stress. Discussed treatment plan with the patient who verbalized understanding. - Exam Vitals: Temp Pulse Resp BP Pulse Ox 99.6 F 91 18 128/58 94 07/03/18 14:57 07/03/18 14:57 07/03/18 14:57 07/03/18 14:59 07/03/18 14:57 Exam: Skin: Free of rash and discoloration. Eyes: Sclera is white. There is no discharge from eyes. ENMT: Oral/pharyngeal mucosa is normal in appearance. There is no discharge from nose or ears. Respiratory: Normal breath sounds with no crackles and wheezes bilaterally. CV: Heart is regular with no gallop or murmur. GI: Abdomen is flat and soft with no palpable mass or visceromegaly. : There is no tenderness in patient's flanks bilaterally. Neuro exam: He has good strength in upper and lower extremities. He has normal eye movements. Psychiatric: He has normal affect. His thought process is appropriate to the situation. - Assessment and Plan (1) DVT prophylaxis Current Visit: Yes Status: Acute Assessment and Plan: Heparin 5,000 units SQ Q8HR for DVT prophylxis. Monitor patient for signs of bleeding. (2) Atypical chest pain Current Visit: Yes Status: Acute Assessment and Plan: Currently no chest pain at this time Troponins have been negative [address]-T wave abnormality Cardiac monitoring Nitroglycerin as needed for chest pain Patient has completed first day of 2 day stress Nothing by mouth After midnight Cardiac echo is pending (3) Nausea Current Visit: Yes Status: Acute Assessment and Plan: No nausea. IVP Zofran 4 mg every 8 hour when necessary for nausea and vomiting ordered. (4) SOB (shortness of breath) Current Visit: Yes Status: Acute Assessment and Plan: Denies any shortness of breath at this time Pt. denies home O2 use. Supplemental O2 w/titration and SpO2 monitoring. (5) HTN (hypertension) Current Visit: Yes Status: Chronic Assessment and Plan: Hx of chronic HTN. Monitor pt. and VS. continue patient's HTN medications. (6) HLD (hyperlipidemia) Current Visit: Yes Status: Chronic Assessment and Plan: Hx of chronic HLD. Lipid panel in a.m. labs. Continue patient's pravastatin. (7) GERD (gastroesophageal reflux disease) Current Visit: Yes Status: Chronic Assessment and Plan: Hx of chronic GERD. Tums ordered. GI cocktail PRN. Continue pts. Zantac. (8) Diabetes Current Visit: Yes Status: Chronic Assessment and Plan: Hx of chronic DM controlled by insulin and oral antihyperglycemic medications. Will hold patient's medications and administer low-dose correction sliding scale insulin with hypoglycemic protocol. A1c in a.m. labs. BG checks before meals a t bedtime. - Time Spent with Patient Total time spent is greater than 50% in coordination of care (as documented) at patient's floor/unit and/or counseling patient: Internal Medicine: Result - Labs CBC & Chem 7: 07/03/18 04:19 07/03/18 04:19 Labs: Short CBC 07/03/18 Range/Units 04:19 WBC 8.7 (4.3-11.1) K/mcL Hgb 10.6 L (11.5-15.4) g/dL Hct 32.2 L (35.3-44.9) % Plt Count 329 (140-400) K/mcL BMP 07/02/18 07/03/18 15:59 04:19 Sodium 138 141 Potassium 4.1 3.9 Chloride 104 106 Carbon Dioxide 24 24 BUN 22 21 Creatinine 0.81 0.75 Glucose 152 H 101 Calcium 10.3 9.4 Cardiac Enzymes 07/02/18 07/02/18 07/03/18 Range/Units 15:59 22:29 04:19 Troponin I < 0.03 < 0.03 < 0.03 (< 0.04) ng/mL - ABG Interpretation ABG results: PT/INR, D-dimer PT 11.9 Seconds (9.4-12.1) 07/02/18 15:59 - Impressions Impressions Echocardiogram 07/03/18 07:00 Impressions: LVEF 55-60%. Mild left ventricular diastolic dysfunction. Normal right ventricular structure and function. Unable to estimate RVSP due to lack of TR jet. No significant valvular dysfunction. Left Ventricular Wall Motion: Rest Echo Findings All wall segments showed normal motion. Findings: Study Quality * Technically sub-optimal due to poor echocardiographic windows. ECG Findings * Sinus tachycardia. Left Ventricle * LVEF 55-60%. * Mild left ventricular diastolic dysfunction. * Normal LV chamber size Right Ventricle * Normal right ventricular structure and function. Left Atrium * Normal left atrial size. Right Atrium * Normal right atrial size. Aortic Valve * Trileaflet aortic valve. * No aortic regurgitation. * No aortic stenosis. * Normal aortic valve structure. Mitral Valve * No mitral stenosis. * No mitral regurgitation. * Mild mitral annular calcification Tricuspid Valve * Normal tricuspid valve structure. * Trace tricuspid regurgitation. * No tricuspid stenosis. * Unable to estimate RVSP due to lack of TR jet. Pulmonic Valve * Pulmonic valve not well visualized. Aorta * Normally sized aortic root. Pericardium * The pericardium appears normal. IVC * The IVC is not well evaluated. Pulmonary Artery * Pulmonary artery not well visualized. Consult Discharge Plan - Plan Referrals: Ric Rasheed MD [Primary Care Provider] - 07/19/18 8:15 am () Abbey Mcgrath CNP [Advanced Practice Nurse] - 07/09/18 1:00 pm (5) HTN (hypertension) Qualifiers: Hypertension type: essential hypertension Qualified Code(s): I10 - Essential (primary) hypertension (6) HLD (hyperlipidemia) Qualifiers: Hyperlipidemia type: pure hypercholesterolemia Qualified Code(s): E78.00 - Pure hypercholesterolemia, unspecified; E78.0 - Pure hypercholesterolemia (7) GERD (gastroesophageal reflux disease) Qualifiers: Esophagitis presence: esophagitis presence not specified Qualified Code(s): K21.9 - Gastro-esophageal reflux disease without esophagitis (8) Diabetes Qualifiers: Diabetes mellitus type: type 2 Diabetes 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
[2018-07-03] MEDS: Famotidine 20 MG TABLET PO SCH (21:28)
[2018-07-04 04:31] LABS: Hematocrit 31.5 % (35.3-44.9); Hemoglobin 10.1 g/dL (11.5-15.4); Mean Corpuscular HGB Conc 32.1 g/dL (31.6-35.5); Mean Corpuscular Hemoglobin 27.4 pg (28.0-33.3); Mean Corpuscular Volume 85.4 fL (83.0-100.0); Mean Platelet Volume 9.6 fL (9.4-12.4); Platelet Count 296 K/mcL (140-400); Red Blood Count 3.69 M/mcL (3.82-4.97); Red Cell Distribution Width 14.5 % (11.5-14.5)
[2018-07-04 05:08] LABS: BUN/Creatinine Ratio 20 (6-26); Blood Urea Nitrogen 16 mg/dL (8-23); Calcium 9.6 mg/dL (8.6-10.3); Carbon Dioxide 25 mEq/L (23-29); Chloride 104 mEq/L (98-107); Glucose 166 mg/dL (70-105); Osmolality,Calculated 291 (280-300); Sodium 138 mEq/L (136-145); eGFR For Non-African Americans > 60 (> 60)
[2018-07-04] MEDS: *HR* Heparin 5,000 UNIT/ML VIAL SQ SCH ×3 (06:21→20:47)
[2018-07-04] MEDS: Insulin LISPRO 300 UNITS/3 ML VIAL SQ SCH ×4 (08:06→20:49)
[2018-07-04] MEDS: predniSONE 5 MG TABLET PO SCH (08:11)
[2018-07-04] MEDS: predniSONE 1 MG TABLET PO SCH (08:11)
[2018-07-04] MEDS: Aspirin Enteric Coated 81 MG Tablet PO SCH (08:12)
[2018-07-04] MEDS: Cholecalciferol (D-3) 1,000 UNIT TABLET PO SCH (08:12)
--- NOTE | 2018-07-04 11:28 | Cardiology Consult Note ---
<Binh Damon - Last Filed: 07/04/18 13:14> Date of Encounter: 07/04/18 Time of Encounter: 11:25 Assessment and Plan (1) Atypical chest pain Current Visit: Yes Status: Acute 63-year-old diabetic female presents complaining of atypical chest pain Troponins have been negative [address]-T wave abnormality Echo revealed LVEF 55-60%, mild left ventricular diastolic dysfunction, normal right ventricular structure and function, unable to estimate RVSP due to lack of TR jet, and no significant valvular dysfunction. Two day stress test revealed challenging due to body habitus. Small sized, very mild intensity stress perfusion defect involving the distal inferolateral wall may represent mild ischemia. No perfusion evidence for infarct. Pharmacologic stress ECG is negative for ischemia at level of heart rate achieved. No appre ciable change from baseline ECG. Gated EF = 61%. Continue aspirin, beta demetrius, and statin. Patient reports history of cough secondary to CESAR inhibitor use in the past and states ARB was ineffective. Continue Nitroglycerin prn chest pain. NPO after midnight, anticipate LHC tomorrow. (2) HTN (hypertension) Current Visit: Yes Status: Chronic Blood pressure controlled. Continue beta demetrius and Norvasc. Patient reports history of cough secondary to CESAR inhibitor use in the past and states ARB was ineffective. Qualifiers: Hypertension type: essential hypertension Qualified Code(s): I10 - Essential (primary) hypertension (3) HLD (hyperlipidemia) Current Visit: No Status: Chronic Continue statin. Qualifiers: Hyperlipidemia type: pure hypercholesterolemia Qualified Code(s): E78.00 - Pure hypercholesterolemia, unspecified; E78.0 - Pure hypercholesterolemia (4) Insulin dependent type 2 diabetes mellitus Current Visit: No Status: Chronic Measurement per primary team. (5) Polymyalgia rheumatica Current Visit: No Status: Chronic Management per primary team. (6) SLE (systemic lupus erythematosus) Current Visit: No Status: Chronic Management per primary team. Qualifiers: Systemic lupus erythematosus type: unspecified Systemic lupus erythematosus organ involvement: unspecified Qualified Code(s): M32.9 - Systemic lupus erythematosus, unspecified (7) GERD (gastroesophageal reflux disease) Current Visit: No Status: Chronic Management per primary team. Qualifiers: Esophagitis presence: esophagitis presence not specified Qualified Code(s): K21.9 - Gastro-esophageal reflux disease without esophagitis (8) Morbid obesity with BMI of 40.0-44.9, adult Current Visit: Yes Status: Chronic Lifestyle modification. Discussion w patient/family: The assessment and plan as outlined above was discussed with the patient and/or family members who expressed understanding and agreement. All questions were answered. Thank you for involving us in the care of your patient. Please call with any questions. History of Present Illness Consult date: 07/04/18 Requesting physician: Pepper Argueta Consult reason: Abnormal stress test Chief complaint: Chest pain History of present illness: Ms. Do is a 63 year old female with a past medical history of hypertension, hyperlipidemia, diabetes mellitus type 2, systemic lupus erythematosus, polymyalgia rheumatica, morbid obesity, and GERD who presented complaining of intermittent left substernal chest pain. Chest pain woke her up from her sleep and radiated to her right jaw. Patient reports taking an aspirin and went to see her PCP that afternoon. Patient reports tachycardia but denies associated dyspnea on exertion, nausea, vomiting, diaphoresis, or history of similar symptoms in the past. Her PCP sent her to the ED for further cardiac evaluation. Since admission, serial troponins have been negative 3 [address] E[address] revealed no [address]-T wave abnormality. Echo revealed LVEF 55-60%, mild left ventricular diastolic dysfunction, normal right ventricular structure and function, unable to estimate RVSP due to lack of TR jet, and no significant valvular dysfunction. Two day stress test revealed challenging due to body habitus. Small sized, very mild intensity stress perfusion defect involving the distal inferolateral wall may represent mild ischemia. No perfusion evidence for infarct. Pharmacologic stress ECG is negative for ischemia at level of heart rate achieved. No appreciable change from baseline ECG. Gated EF = 61%. Cardiology was consulted for further evaluation. Past Med Surg Social Fam HX - Past Medical History Medical history: diabetes, GERD, hyperlipidemia, hypertension Additional medical history: Lupus Psychiatric history: no psych history - Past Surgical History Surgical History: , cholecystectomy, other Additional surgical history: knee replacement - Social History Smoking Status: Former smoker Packs per day: 1/2 PPD - Reports quitting in 1995 Smokeless Tobacco Status: No Alcohol use: none Drug use: none - Family History Mother Race: Family Member Ethnicity: Non- Living Status: Age at : 83 Cause of : Complications following bypass surgery Hx Family Cardiac Disorders: Yes (CAD) Sister Race: Family Member Ethnicity: Non- Living Status: Age at : 52 Cause of : Lupus Hx Family Cardiac Disorders: Yes ([place]) Hx Family Autoimmune Disorders: Yes (Lupus) Father Race: Family Member Ethnicity: Non- Living Status: Age at : 52 Cause of : [place] Hx Family Cardiac Disorders: Yes (CVA, [place]) Hx Family Neurologic Disorders: Yes (CVA @ 39) Medications and Allergies Pravastatin Sodium [Pravachol] 20 mg PO DAILY #0 12/13/14 [History] Cholecalciferol (D-3) [Vitamin D] 2,000 unit PO MOTUWETHFR 02/24/17 [History] GlipiZIDE [Glipizide Xl] 5 mg PO DAILY 02/24/17 [History] Amlodipine Besylate 10 mg PO DAILY 07/02/18 [History] Carvedilol [Coreg] 6.25 mg PO BID 07/02/18 [History] Duloxetine HCl [Cymbalta] 60 mg PO DAILY 07/02/18 [History] Insulin Glargine [Lantus] 20 unit SQ HS 07/02/18 [History] predniSONE [PredniSONE] 7 mg PO DAILY 07/02/18 [History] Insulin LISPRO [HumaLOG] 5 - 7 units SQ TIDAC 07/03/18 [History] Metformin HCl [Fortamet] 1,000 mg PO BID 07/03/18 [History] raNITIdine HCl [Zantac] 150 mg PO HS 07/03/18 [History] Allergy/AdvReac Type Severity Reaction Status Date / Time No Known Allergies Allergy Verified 07/03/18 12:44 All Systems Review: The remainder of the systems were reviewed and are negative - Constitutional Constitutional: chills, fatigue (3 weeks), no fever(s), no weakness - EENT Nose, mouth and throat: no dysphagia, no sore throat - Cardiovascular Cardiovascular: chest pain at rest, radiating jaw, neck or arm pain, palpitations, rapid heart rate, no chest pain with exertion, no diaphoresis, no dyspnea at rest, no dyspnea on exertion, no irregular heart rhythm, no leg edema, no lightheadedness, no syncope - Respiratory Respiratory: no cough, no dyspnea - Gastrointestinal Gastrointestinal: no abdominal pain, no diarrhea - Genitourinary Genitourinary: no dysuria, no hematuria - Musculoskeletal Musculoskeletal: arthralgias, no back pain, no myalgias - Integumentary Integumentary: no erythema, no rash - Neurological Neurological: no numbness, no syncope, no tingling - Psychiatric Psychiatric: no anxiety, no depression - Hematological/Lymphatic Hematologic/Lymphatic: no easy bleeding, no easy bruising Physical Examination Vital Signs, Last 4 Hours Temp Pulse Resp BP Pulse Ox 07/04/18 08:26 99.2 F 104 16 151/81 94 General: Conversant, No Apparent Distress (morbidly obese) HEENT: Atraumatic, Normocephaly, Other (Mucous membranes dry) Neck: No JVD, Normal carotid pulses Cardiac: Reg Rate and Rhythm, Normal S1 and S2, No Murmur Lungs: Normal Breath Sounds, No Wheeze, Rales, Rhonchi Neuro: Alert and responsive, No focal deficits noted Abdomen: Soft, Non-Tender Skin: No rashes noted on visualized skin Musculoskeletal: No Chest Wall Tenderness Extremities: No Clubbing, No Cyanosis, No Edema, Normal Pulses Results 07/04/18 03:48 07/04/18 03:48 Lab Results 07/04/18 07/04/18 03:48 03:48 WBC 8.2 Hgb 10.1 L Hct 31.5 L Plt Count 296 Sodium 138 Potassium 4.0 Chloride 104 Carbon Dioxide 25 BUN 16 Creatinine 0.81 Glucose 166 H Calcium 9.6 - Imaging and Cardiology Chest Xray: report reviewed Stress Test: report reviewed Echo: report reviewed - EKG Interpretation EKG results cardiology: personally reviewed, sinus rhythm (LVH), no diagnostic ischemia Consult Discharge Plan - Plan Referrals: Ric Rasheed MD [Primary Care Provider] - 07/19/18 8:15 am () Abbey Mcgrath CNP [Advanced Practice Nurse] - 07/09/18 1:00 pm < A - Last Filed: 07/04/18 15:26> Date of Encounter: 07/04/18 - Attending Attestation I have personally performed a face to face evaluation on this patient. I have reviewed and agree with the documented findings and care plan as documented by the resident. History and Exam by me shows: 63-year-old pleasant female with multiple risk factors (including diabetes) for coronary artery disease including family history of premature CAD. Stress test suggests mild ischemia AAOX3 in NAD at the bedside Hemodynamically stable Cardiopulmonary exam revealed S1, S2, no murmur; clear lungs Rhythm reviewed - sinus rhythm, no acute ST T changes Echo preserved EF, no significant valvular heart disease Impression/plan: Atypical chest pain/ abnormal stress test/ type 2 diabetes. We discussed benefits, risks,and alternatives to a [facility], and she wishes to proceed. Lifestyle modification to address modifiable risk factors Ben Gillespie MD FAC Assessment and Plan Discussion w patient/family: The assessment and plan as outlined above was discussed with the patient and/or family members who expressed understanding and agreement. All questions were answered. Thank you for involving us in the care of your patient. Please call with any questions. History of Present Illness History of present illness: Ms. Do is a 63 year old female All Systems Review: The remainder of the systems were reviewed and are negative Physical Examination Vital Signs, Last 4 Hours Temp Pulse Resp BP Pulse Ox 07/04/18 11:32 99.5 F 112 14 167/82 94 Results 07/04/18 03:48 07/04/18 03:48 Lab Results 07/04/18 07/04/18 03:48 03:48 WBC 8.2 Hgb 10.1 L Hct 31.5 L Plt Count 296 Sodium 138 Potassium 4.0 Chloride 104 Carbon Dioxide 25 BUN 16 Creatinine 0.81 Glucose 166 H Calcium 9.6
--- NOTE | 2018-07-04 14:50 | Internal Med Progress Note ---
Hospitalist Progress Note - Encounter Date of Encounter: 07/04/18 Time of Encounter: 14:50 - Subjective Interval History: Patient was seen at bedside denies any chest pain or shortness of breath at this time. I did discuss results of stress test advised patient that she will need to be seen by cardiology for possible cardiac catheterization. Patient ve rbalized understanding. - Exam Vitals: Temp Pulse Resp BP Pulse Ox 99.5 F 112 14 167/82 94 07/04/18 11:32 07/04/18 11:32 07/04/18 11:32 07/04/18 11:32 07/04/18 11:32 Exam: Skin: Free of rash and discoloration. Eyes: Sclera is white. There is no discharge from eyes. ENMT: Oral/pharyngeal mucosa is normal in appearance. There is no discharge from nose or ears. Respiratory: Normal breath sounds with no crackles and wheezes bilaterally. CV: Heart is regular with no gallop or murmur. GI: Abdomen is flat and soft with no palpable mass or visceromegaly. : There is no tenderness in patient's flanks bilaterally. Neuro exam: He has good strength in upper and lower extremities. He has normal eye movements. Psychiatric: He has normal affect. His thought process is appropriate to the situation. - Assessment and Plan (1) Atypical chest pain Current Visit: Yes Status: Acute Assessment and Plan: Currently denies any chest pain Troponins negative [address]-T wave abnormality Patient did undergo a 2 day stress test which did reveal small sized very mild intensity stress perfusion defect involving the distal inferolateral wall may represent mild ischemia. No perfusion evidence for infarct. Neurological stress EKG is negative for ischemia level of heart rate achieved. No appreciable change from baseline EKG. Gaited EF of 61% Continue with aspirin and beta demetrius and statin Nitroglycerin as needed for chest pain Cardiology was consulted patient will be nothing by mouth after midnight anticipate [facility] in the a.m. (2) Insulin dependent type 2 diabetes mellitus Current Visit: No Status: Chronic Assessment and Plan: Accu-Cheks before meals at bedtime with sliding scale insulin (3) Polymyalgia rheumatica Current Visit: No Status: Chronic Assessment and Plan: Continue with steroids (4) HTN (hypertension) Current Visit: Yes Status: Chronic Assessment and Plan: Hx of chronic HTN. Monitor pt. and VS. continue patient's HTN medications. (5) HLD (hyperlipidemia) Current Visit: No Status: Chronic Assessment and Plan: Hx of chronic HLD. Lipid panel in a.m. labs. Continue patient's pravastatin. (6) GERD (gastroesophageal reflux disease) Current Visit: No Status: Chronic Assessment and Plan: Hx of chronic GERD. Tums ordered. GI cocktail PRN. Continue pts. Zantac. (7) Morbid obesity with BMI of 40.0-44.9, adult Current Visit: Yes Status: Chronic (8) SLE (systemic lupus erythematosus) Current Visit: No Status: Chronic Assessment and Plan: cont steroids - Time Spent with Patient Total time spent is greater than 50% in coordination of care (as documented) at patient's floor/unit and/or counseling patient: Internal Medicine: Result - Labs CBC & Chem 7: 07/04/18 03:48 07/04/18 03:48 Labs: Short CBC 07/04/18 Range/Units 03:48 WBC 8.2 (4.3-11.1) K/mcL Hgb 10.1 L (11.5-15.4) g/dL Hct 31.5 L (35.3-44.9) % Plt Count 296 (140-400) K/mcL BMP 07/04/18 03:48 Sodium 138 Potassium 4.0 Chloride 104 Carbon Dioxide 25 BUN 16 Creatinine 0.81 Glucose 166 H Calcium 9.6 - ABG Interpretation ABG results: PT/INR, D-dimer PT 11.9 Seconds (9.4-12.1) 07/02/18 15:59 Consult Discharge Plan - Plan Referrals: Ric Rasheed MD [Primary Care Provider] - 07/19/18 8:15 am () Abbey Mcgrath CNP [Advanced Practice Nurse] - 07/09/18 1:00 pm _ (4) HTN (hypertension) Qualifiers: Hypertension type: essential hypertension Qualified Code(s): I10 - Essential (primary) hypertension (5) HLD (hyperlipidemia) Qualifiers: Hyperlipidemia type: pure hypercholesterolemia Qualified Code(s): E78.00 - Pure hypercholesterolemia, unspecified; E78.0 - Pure hypercholesterolemia (6) GERD (gastroesophageal reflux disease) Qualifiers: Esophagitis presence: esophagitis presence not specified Qualified Code(s): K21.9 - Gastro-esophageal reflux disease without esophagitis (8) SLE (systemic lupus erythematosus) Qualifiers: Systemic lupus erythematosus type: unspecified Systemic lupus erythematosus organ involvement: unspecified Qualified Code(s): M32.9 - Systemic lupus erythematosus, unspecified
[2018-07-04] MEDS: *HR* HYDROcodone/Acet 5/325 mg TABLET PO PRN ×2 (17:07→23:33)
[2018-07-04] MEDS: Famotidine 20 MG TABLET PO SCH (20:47)
[2018-07-04] MEDS ORDERED: NON-FORMULARY MEDICATION 1 EACH EACH (Ranitidine Hcl [Zantac] 150 MG) PO SCH (21:00)
[2018-07-05 01:37] LABS: Basophils % 0.5 %; Eosinophils # 0.2 K/mcL (0.0-0.6); Eosinophils % 2.2 %; Hematocrit 30.1 % (35.3-44.9); Hemoglobin 9.7 g/dL (11.5-15.4); Immature Granulocytes % 0.5 % (0-4); Lymphocytes % 24.6 %; Mean Corpuscular HGB Conc 32.2 g/dL (31.6-35.5); Mean Corpuscular Hemoglobin 27.6 pg (28.0-33.3); Mean Corpuscular Volume 85.5 fL (83.0-100.0); Mean Platelet Volume 9.7 fL (9.4-12.4); Monocytes # 0.9 K/mcL (0.0-1.3); Monocytes % 11.5 %; Platelet Count 299 K/mcL (140-400); Red Blood Count 3.52 M/mcL (3.82-4.97); Red Cell Distribution Width 14.7 % (11.5-14.5); Segmented Neutrophils % 60.7 %
[2018-07-05 01:57] LABS: BUN/Creatinine Ratio 23 (6-26); Blood Urea Nitrogen 24 mg/dL (8-23); Calcium 9.3 mg/dL (8.6-10.3); Carbon Dioxide 25 mEq/L (23-29); Chloride 103 mEq/L (98-107); Glucose 297 mg/dL (70-105); Osmolality,Calculated 295 (280-300); Potassium 4.4 mEq/L (3.5-5.1); Sodium 135 mEq/L (136-145); eGFR For Non-African Americans 53 (> 60)
[2018-07-05] MEDS: *HR* Heparin 5,000 UNIT/ML VIAL SQ SCH ×2 (05:32→15:12)
[2018-07-05] MEDS: Insulin LISPRO 300 UNITS/3 ML VIAL SQ SCH ×2 (07:43→12:21)
[2018-07-05] MEDS: Cholecalciferol (D-3) 1,000 UNIT TABLET PO SCH (07:43)
[2018-07-05] MEDS: predniSONE 5 MG TABLET PO SCH (07:43)
[2018-07-05] MEDS: predniSONE 1 MG TABLET PO SCH (07:43)
[2018-07-05] MEDS: Aspirin Enteric Coated 81 MG Tablet PO SCH (07:44)
--- NOTE | 2018-07-05 07:59 | Pre-Sedation Evaluation ---
Pre-sedation evaluation - Pre-sedation checklist Date of procedure: 07/05/18 Procedure: C Recent Vitals: Last Vital Signs Temp 98.5 F 07/05/18 06:35 Pulse 85 07/05/18 06:35 Resp 16 07/05/18 06:35 BP 121/68 07/05/18 06:35 Pulse Ox 97 07/05/18 06:35 H&P (including ROS) documented in medical record: Yes Previous reaction to sedatives/anesthetics: No Dietary Status: NPO after Midnight Dentition: No loose teeth or bridges ASA Classification *see protocol: CLASS II-Mild systemic disease Cardiac Registry (Cardio Only) - Functional Capacity Functional Capacity: >=4 METS with symptoms - Clincal Frailty Scale Clinical Frailty Scale: Managing Well
[2018-07-05] MEDS ORDERED: Nitroglycerin 1,000 MCG/10 ML VIAL IV ONE (10:39)
[2018-07-05] MEDS ORDERED: 0.9 % Sodium Chloride 1,000 ML ONE (10:39)
[2018-07-05] MEDS ORDERED: Heparin 1,000 UNITS/500 mL 500 ML ONE (10:39)
[2018-07-05] MEDS ORDERED: *HR* Heparin 10,000 UNIT/10 ML VIAL ONE (10:39)
[2018-07-05] MEDS ORDERED: *HR* FentaNYL (PF) 100 MCG/2 ML VIAL ONE (10:55)
[2018-07-05] MEDS ORDERED: *HR* Midazolam HCl 2 MG/2 ML VIAL ONE (10:55)
--- NOTE | 2018-07-05 11:43 | Electrocardiograph Report ---
[address] [address] Test Date: 2018-07-02 Pat Name: Ama Do Department: [id number] Room: 3B45 Gender: F [employer] Justice: : 1955 Requested By: Ambrocio Ayala Order Number: [id number] Reading MD: Jeferson Klein Measurements Intervals [place] Rate: 76 P: 12 SC: 140 QRS: -37 QRSD: 101 T: 34 QT: 369 QTc: 415 Interpretive Statements Sinus rhythm LAD Abnormal R-wave progression, late transition Left ventricular hypertrophy Electronically Signed On 07-05-2018 11:41:53 EDT by Jeferson Klein
--- NOTE | 2018-07-05 11:53 | Invasive Diagnostic Lab Proc ---
Name: Ama Do Date of Study: 07/05/2018 Date: 1955 Ht: 61.0in Medical Record#: [id number] Age: 63 Wt: 237.22lb Gender: Female BSA: 2.03 Order #: [id number] BMI: 44.79 Physicians Procedure Physician: Piter Allen MD Referring MD: Referring MD: Staff Name Position Time In JustusNigel RT (R) Scrub 10:54 AM Michael Hassan RN Tailor'S Aide 10:54 AM Tito Mccurdy RN Tailor'S Aide 10:54 AM Sandra Gaitan RN Monitor 10:54 AM Juan F Ford RN Nurse 11:35 AM Indications Indication Unstable Angina Procedures Performed Procedure L HRT ARTERY/VENTRICLE ANGIO Pre-Procedure Checklist Informed consent is complete signed and on chart. H&P is on chart. ID band is on and ID verified with patient. Patient NPO for procedure The procedure was described for the patient and questions were answered. Blood Pressure: 132/74 ECG is on chart. Plan of Care Patient will tolerate the procedure without complications. Adequate level of comfort will be maintained. Hemodynamics will remain stable Patient will recover from procedure without complications. Respiratory function will be maintained. Cardiac rhythm will remain stable. Patient temperature will be maintained. Patient and/or family have verbalized understanding of the procedure. Patient Education Chief Complaint/Reason for Test: Cardiac Cath Developmental Category: Geriatric (65+ years) Developmentally Appropriate for Age: Yes Learning Barriers: None Education Needs: Procedure Education Method: Verbal Information Taught: Cardiac Cath Educational Evaluation: Able to repeat information Intravenous Access Time IV Size Location DC'd Fluid/Drip Rate Units RN 20g 1 /" Patent On Arrival Lt Antecubital Allergies No Known Allergies Vital Signs Time BP (mmHg) HR (bpm) O2 Sat. RR (bpm) LOC 132 / 74 85 98 % 16 5 = Fully awake and oriented or at pre-proc level 10:55 AM / % 5 = Fully awake and oriented or at pre-proc level 10:55 AM / % 4 = Oriented but drowsy 11:10 AM / % 4 = Oriented but drowsy 11:05 AM 159 / 71 86 100 % 18 11:10 AM 149 / 68 81 100 % 14 11:15 AM 152 / 76 94 100 % 21 11:20 AM 146 / 76 93 100 % 13 11:25 AM 146 / 77 92 100 % 18 11:30 AM 145 / 71 98 100 % 18 11:35 AM 142 / 76 87 100 % 19 11:40 AM 150 / 73 82 100 % 14 Procedural Medications Time Medication Dose Units Method Given By 11:00 AM Oxygen 2 L/min nasal cannula Michael Hassan RN 11:07 AM Versed 1 mg Intravenous Michael Hassan RN 11:07 AM Fentanyl 50 mcg Intravenous Michael Hassan RN 11:14 AM Lidocaine 2% 20 ml Subcutaneous Piter Allen MD 11:19 AM Lidocaine 2% 10 ml Subcutaneous Piter Allen MD 11:22 AM Versed 0.5 mg Intravenous Michael Hassan RN 11:22 AM Fentanyl 25 mcg Intravenous Michael Hassan RN ASA Classification: CLASS II- Mild systemic disease (i.e. well-controlled diabetes, hypertension, asthma, cigarette smoking) Sharron Score Preprocedure Postprocedure Activity 2- Moves 4 extremities sustained head lift Activity 2- Moves 4 extremities sustained head lift Circulation 2- SBP +/= 20 points of pre-anesthetic level Circulation 2- SBP +/= 20 points of pre-anesthetic level Consciousness 2- Awake and alert oriented x 3 Consciousness 2- Awake and alert oriented x 3 O2 Saturation 2- Able to maintain O2 satruation of 92% on room air O2 Saturation 2- Able to maintain O2 satruation of 92% on room air Respiratory 2- Able to deep breathe and cough well Respiratory 2- Able to deep breathe and cough well Total Score 10 Total Score 10 Contrast Agent: Isovue Diagnostic Contrast: 3 ml Total Contrast: 3 ml Fluoro Dose: 43 mGy Procedure Log Time Note Enter By 10:53 AM 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 at 10:53 kmavis 10:54 AM Nigel Jerome RT (R) Position: Scrub Time in: 10:54 kmavis 10:54 AM Michael Hassan RN Position: Tailor'S Aide Time in: 10:54 kmavis 10:54 AM Tito Mccurdy RN Position: Tailor'S Aide Time in: 10:54 kmavis 10:54 AM Sandra Gaitan RN Position: Monitor Time in: 10:54 kmavis 10:54 AM Patient charges- Angio tray pack, Navilyst 3mm J, Pulse Oximetry and ACIST tubing and transducer kmavis 10:54 AM Case Delayed No kmavis 10:55 AM Time: 10:54 Patient comfortable and pain free: Yes kmavis 10:55 AM Time: 10:55LOC: 5 = Fully awake and oriented or at pre-proc level kmavis 10:55 AM Case Start 10:55 AM CathStat 10:55 AM [ Start or Stop Vital ] 10:57 AM ASA Class CLASS II- Mild systemic disease (i.e. well-controlled diabetes, hypertension, asthma, cigarette smoking) kmavis 10:59 AM Physician arrived 10:59 kmavis 10:59 AM Meet and greet completed kmavis 10:59 AM Sign in performed according to hospital policy. Informed consent was obtained. kmavis 10:59 AM Procedure start 10:59 kmavis 11:00 AM Hair removed from procedure site in procedure lab using clippers. Bilateral groin prepped with Chloraprep by Nigel Jerome), then patient was draped. Skin intact. kmavis 11:00 AM Time: 11:00 Oxygen on at 2 L/min per nasal cannula by Michael Hassan RN [facility] 11:04 AM Vitals capture started with the following parameters, Patient=Adult, Interval=5 min, Initial Urgxvnww=299 mmHg, Deflation Rate=3 mmHg, Cuff placed on Right Arm 11:05 AM HR=86 bpm, TTWU=255/71 mmhg, KpI7=954 %, Resp=18 B/min 11:07 AM Recorded ECG: HR=90 Condition=Condition 1 11:07 AM Time: 11:07 Versed 1 mg Intravenous Given by [facility] 11:07 AM Time: 11:07 Fentanyl 50 mcg Intravenous Given by Michael Hassan RN [facility] 11:09 AM Pressure channel 1 zeroed. 11:10 AM HR=81 bpm, SSPS=842/68 mmhg, UdM8=319.0 %, Resp=14 B/min, EtCO2=36 mmHg 11:10 AM Time: 10:55LOC: 4 = Oriented but drowsy kmavis 11:10 AM Time: 10:55 Patient comfortable and pain free: Yes kmavis 11:13 AM Time out was performed according to hospital policy. Conscious sedation and anesthesia was achieved (see medication log with in this report above) kmavis 11:15 AM HR=94 bpm, YUBR=222/76 mmhg, LrC5=183.0 %, Resp=21 B/min, EtCO2=41 mmHg, Comment=nsr 11:16 AM Time: 11:14 20 ml Lidocaine 2% to right groin Subcutaneous Given by Piter Allen MD [facility] 11:20 AM HR=93 bpm, MRYS=747/76 mmhg, FsQ2=874.0 %, Resp=13 B/min, EtCO2=38 mmHg, Comment=nsr 11:20 AM Time: 11:19 10 ml Lidocaine 2% to right groin Subcutaneous Given by Piter Allen MD [facility] 11: AM Time: : Versed 0.5 mg Intravenous Given by Michael Hassan RN [facility] 11: AM Time: : Fentanyl 25 mcg Intravenous Given by Michael Hassan RN [facility] 11:24 AM Micro-Introducer Kit utilized for sheath placement [facility] 11:25 AM HR=92 bpm, KNSE=262/77 mmhg, EzX0=404.0 %, Resp=18 B/min, EtCO2=41 mmHg, Comment=nsr 11: AM Access obtained by percutaneous puncture. 6Fr 10cm Terumo Stella sheath placed in right Femoral artery. [id number] [facility] 11:25 AM Time: 11:10 Patient comfortable and pain free: Yes [facility] 11:25 AM Time: 11:10LOC: 4 = Oriented but drowsy [facility] 11:26 AM 5Fr FR 4 catheter inserted over the wire [facility] 11: AM 0.035 145cm Navilyst 3mmJ wire [id number] [facility] 11:26 AM RCA angiography performed in multiple views. avis 11:26 AM Recorded Pressure: Ao, HR=87, Condition=Condition 1 (Aorta) Ao 139/46/91 11:27 AM Catheter removed [facility] 11:27 AM 5Fr FL 4 catheter inserted over the wire [facility] 11:28 AM LCA angiography performed in multiple views. avis 11:28 AM Recorded Pressure: Ao, HW=690, Condition=Condition 1 (Aorta) Ao 141/89/114 11:29 AM Catheter removed [facility] 11:29 AM Coronary Dominance: Left avis 11:30 AM 5Fr Pigtail catheter inserted over the wire [facility] 11:30 AM HR=98 bpm, TFCY=364/71 mmhg, XkL7=875.0 %, Resp=18 B/min, EtCO2=41 mmHg, Comment=nsr 11:30 AM Catheter crossed the aortic valve and was selectively placed in the left ventricle. Pressures recorded on pullback for left heart catheterization. [facility] 11:30 AM Recorded Pressure: LV, HR=95, Condition=Condition 1 (Left Ventricle) LV 148/15/18 11:31 AM Recorded Pressure: LV, Ao, HR=98, Condition=Condition 1 (Left Ventricle) LV 145/15/28, (Aorta) Ao 156/77/112 11:31 AM Catheter removed [email or web address] 11:33 AM Procedure completed at 11:33 07/05/2018 [facility] 11:33 AM Did you address COREY flow and Dominance? Yes [facility] 11:34 AM Sign out completed: Radiation Dose 406 mGy, 42.6 Gy/cm2 Fluoro Time: Isovue 370 - 200ml contrast 38 ml given by Piter Allen MD. Complications: None. 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 Sedation minutes 25. Cardiac Rehab Consult needed: No. Confirmed administered medications: Yes [facility] 11:34 AM Arterial sheath pulled, Angio-seal closure device used and was Successful [id number] S/N. [facility] 11:35 AM HR=87 bpm, VHBZ=613/76 mmhg, OfZ1=689.0 %, Resp=19 B/min 11:35 AM Estimated Blood Loss: minimal [facility] 11:35 AM Post ECG NSR [facility] 11:35 AM Juan F Ford RN Position: Nurse Time in: 11:35 [facility] 11:36 AM Post Blood Pressure 142/76 [facility] 11:36 AM Information taught Cardiac Cath and Angioseal [facility] 11:36 AM Education needs Procedure, Plan of Care, and Disease Process [facility] 11:36 AM Learning barriers :None [facility] 11:36 AM Education Methods Verbal [facility] 11:36 AM Education evaluation Able to repeat information [facility] 11:36 AM Site status No bleeding/hematoma - Rt Groin as reported by Nigel Jerome RT (R) at 11:36 [facility] 11:36 AM Opsite applied [facility] 11:37 AM Plavix, Effient or Brilinta given Yes [facility] 11:37 AM Delay to floor No kmavis 11:37 AM Family placed in consult room. kmavis 11:37 AM Complications: None kmavis 11:40 AM HR=82 bpm, OEQX=340/73 mmhg, MwE6=994.0 %, Resp=14 B/min 11:40 AM Report given to Ya MARVIN Pt taken to 3B Room #45. 11:39 kmavis 11:40 AM Patient out of room: 11:40 kmavis 11:43 AM manual pressure held to right groin post angioseal deployment due to small amount of bleeding. kmavis 11:44 AM Site status No bleeding/hematoma - Rt Groin as reported by Nigel Jerome RT (R) at 11:44 kmavis Complications Complication None None Hemodynamics Pressures Site Systolic/A Wave Diastolic/V Wave Mean AO 139 46 91 AO 141 89 114 LV 148 15 18 LV 145 15 28 AO 156 77 112 Post Procedure Information Blood Pressure: 142/76 mmHg Rhythm: NSR Post procedural instructions were given Closure Device Time Device Success/Fail 07/05/2018 11:37:00 AM Angio-Seal VIP Successful Site Checks Time Location Status Staff Sheath In? Note 11:36 AM Rt Groin No bleeding/hematoma Nigel Jerome RT (R) 11:44 AM Rt Groin No bleeding/hematoma Nigel Jerome RT (R) Pulses Time Site Pre-Procedure Post-Procedure Note Bilateral DP 2+ Bilateral radial 2+ Updated by Sandra Gaitan RN on 07/05/2018 11:44:52 AM electronically signed on 07/05/2018 11:45:40 AM with status of Final
[2018-07-05 15:11] VITALS: BP 126/71
--- NOTE | 2018-07-05 15:11 | Event Note ---
Date of Encounter: 07/05/18 Time of Encounter: 15:10 - Cardiology Event Note LHC completed and revealed no flow limiting lesions. Continue healthy diet and exercise. Riisk factor modification. F/u with PCP. Cardiology will sign off.
--- NOTE | 2018-07-05 15:28 | Discharge Summary ---
- NOTES TO OUTPATIENT PROVIDER Notes to Outpatient Provider: Presented with chest pain underwent cardiac stress test which was abnormal underwent [facility] and revealed no flow limiting lesions. Orders not resulted at time of discharge: Pending orders 07/03/18 07:41 NM yanni perf SPECT multi [NM] Routine 07/04/18 13:14 Left Heart Cath [CL Cardiac Catheterization] [CL] Routine Date of Encounter: 07/05/18 Time of Encounter: 15:21 - Discharge Diagnosis (1) Atypical chest pain Priority: Primary Status: Acute (2) Insulin dependent type 2 diabetes mellitus Priority: Secondary Status: Chronic (3) Polymyalgia rheumatica Priority: Secondary Status: Chronic (4) HTN (hypertension) Priority: Secondary Status: Chronic Qualifiers: Hypertension type: essential hypertension Qualified Code(s): I10 - Essential (primary) hypertension (5) HLD (hyperlipidemia) Priority: Secondary Status: Chronic Qualifiers: Hyperlipidemia type: pure hypercholesterolemia Qualified Code(s): E78.00 - Pure hypercholesterolemia, unspecified; E78.0 - Pure hypercholesterolemia (6) GERD (gastroesophageal reflux disease) Priority: Secondary Status: Chronic Qualifiers: Esophagitis presence: esophagitis presence not specified Qualified Code(s): K21.9 - Gastro-esophageal reflux disease without esophagitis (7) Morbid obesity with BMI of 40.0-44.9, adult Priority: Secondary Status: Chronic (8) SLE (systemic lupus erythematosus) Priority: Secondary Status: Chronic Qualifiers: Systemic lupus erythematosus type: unspecified Systemic lupus erythematosus organ involvement: unspecified Qualified Code(s): M32.9 - Systemic lupus erythematosus, unspecified Hospital course: Ms. Do is a 63 year old female medical history hypertension hyperlipidemia diabetes type 2 systemic lupus polymyalgia rheumatica morbid obesity and GERD presented to [facility] ED with complaints of intermittent left substernal chest pain which woke her from sleep radiating to her right jaw. Had been experiencing tachycardia and associated dyspnea on exertion nausea vomiting diaphoresis. She went to her primary care provider who sent her to the ED for further evaluation. Troponins have been negative [address]-T wave abnormality echo revealed LVEF 55-60% with mild left ventricular diastolic dysfunction normal right ventricular structure and function unable to estimate R VSP due to lack of TR jet no significant valvular dysfunction. Patient did undergo a 2 day nuclear cardiac stress test which did show a small sized very mild intensity stress perfusion defect involving the distal inferolateral wall which may result mild ischemia. No perfusion evidence or infarct. From neurological stress EKG is negative for ischemia at a level of heart rate achieved. Gaited EF of 61%. Cardiology was consulted and patient underwent LHC which revealed no flow limiting lesions. Cardiology recommending risk factor modification and follow with primary care provider. During admission patient's amlodipine has been held and blood pressure has been stable we will continue to hold and have PCP evaluate at follow-up. Advised patient to keep a blood pressure log. Patient verbalized understanding and she is hemodynamically stable this time and ready for discharge. - Time Spent with Patient Total time spent providing and/or coordinating discharge services: - Discharge Medications Prescriptions: New Aspirin Enteric Coated [Aspirin EC] 81 mg PO DAILY #30 tablet.dr Continue Pravastatin Sodium [Pravachol] 20 mg PO DAILY #0 Cholecalciferol (D-3) [Vitamin D] 2,000 unit PO MOTUWETHFR GlipiZIDE [Glipizide Xl] 5 mg PO DAILY predniSONE [PredniSONE] 7 mg PO DAILY Carvedilol [Coreg] 6.25 mg PO BID Duloxetine HCl [Cymbalta] 60 mg PO DAILY Insulin Glargine [Lantus] 20 unit SQ HS Amlodipine Besylate 10 mg PO DAILY Metformin HCl [Fortamet] 1,000 mg PO BID Insulin LISPRO [HumaLOG] 5 - 7 units SQ TIDAC Discontinued raNITIdine HCl [Zantac] 150 mg PO HS Home Medications: Pravastatin Sodium [Pravachol] 20 mg PO DAILY #0 12/13/14 [History] Cholecalciferol (D-3) [Vitamin D] 2,000 unit PO MOTUWETHFR 02/24/17 [History] GlipiZIDE [Glipizide Xl] 5 mg PO DAILY 02/24/17 [History] Amlodipine Besylate 10 mg PO DAILY 07/02/18 [History] Carvedilol [Coreg] 6.25 mg PO BID 07/02/18 [History] Duloxetine HCl [Cymbalta] 60 mg PO DAILY 07/02/18 [History] Insulin Glargine [Lantus] 20 unit SQ HS 07/02/18 [History] predniSONE [PredniSONE] 7 mg PO DAILY 07/02/18 [History] Insulin LISPRO [HumaLOG] 5 - 7 units SQ TIDAC 07/03/18 [History] Metformin HCl [Fortamet] 1,000 mg PO BID 07/03/18 [History] Aspirin Enteric Coated [Aspirin EC] 81 mg PO DAILY #30 tablet. 07/05/18 [Rx] Allergies/Adverse Reactions: Allergy/AdvReac Type Severity Reaction Status Date / Time No Known Allergies Allergy Verified 07/03/18 12:44 Date of admission: 07/04/18 16:11 Primary care physician: Ric Rasheed MD Consults: 07/02/18 21:51 Consult to Director Retirement [CONS] Routine Reason for SW Consult: Please assess patient for possible home needs for post-discharge planning. 07/04/18 11:22 Consult to Cardiology [CONS] Routine Comment: Consulting Provider: Cardiology Olga Reason for Consult: abnormal stress Time Notified: 11:22 Call Completed: Yes Discharging clinician: Pepper Argueta Anticipated date of discharge: 07/05/18 - Constitutional Vitals: Temp Pulse Resp BP Pulse Ox 97.6 F 80 14 126/71 99 07/05/18 15:00 07/05/18 15:00 07/05/18 15:00 07/05/18 15:00 07/05/18 15:00 General appearance: Present: cooperative, mild distress, A&O X 3, morbidly obese, pleasant, answers questions appropriately Exam: Skin: Free of rash and discoloration. Eyes: Sclera is white. There is no discharge from eyes. ENMT: Oral/pharyngeal mucosa is normal in appearance. There is no discharge from nose or ears. Respiratory: Normal breath sounds with no crackles and wheezes bilaterally. CV: Heart is regular with no gallop or murmur. GI: Abdomen is flat and soft with no palpable mass or visceromegaly. : There is no tenderness in patient's flanks bilaterally. Neuro exam: He has good strength in upper and lower extremities. He has normal eye movements. Psychiatric: He has normal affect. His thought process is appropriate to the situation. - Patient Status Disposition: Home, Self-Care Condition: Fair Functional capacity at discharge: independent ambulation Overall status at discharge: patient is back to baseline - Discharge Instructions Instructions: Chest Pain (DC) Follow Up With: Ric Rasheed MD [Primary Care Provider] - 07/19/18 8:15 am () Abbey Mcgrath CNP [Advanced Practice Nurse] - 07/09/18 1:00 pm Additional Instructions: Follow-up appointments: If there is not an appointment listed below, please call your physician and schedule a follow-up appointment. If you have congestive heart failure and your symptoms return, make an appointment with your physician. Medication List: Carry an up to date list of medications you are taking at all time. We have given you an updated medication list including any new medications that you have been prescribed. Please provide that list to your primary provider Symptoms: If your condition changes or you experience any of the following symptoms, notify your physician immediately: Unusual or worsening pain, fever, persistent nausea and vomiting, bleeding, increase in swelling (especially in your legs), sudden weight gain, extreme dizziness, chest pain, increased drainage or redness from a wound or incision. Go to the emergency department if you experience a problem with breathing. Weights: If you have a history of swelling or shortness of breath, weigh yourself daily and notify your physician if you have a weight gain of two or more pounds in one day or 5 or more pounds in a week. If you experience any of the warning signs for stroke: Sudden numbness or weakness of the face, arm or leg; especially on one side of the body, sudden confusion, trouble speaking or understanding, sudden trouble seeing in one or both eyes, sudden trouble walking, dizziness, loss of balance or coordination, sudden sever headache with no cause; Call 911 or go to the emergency room. Stroke is a medical emergency. Some risk factors for stroke: Age, cigarette smoking, diabetes, excessive alcohol consumption, family history, high blood pressure, overweight, physical inactivity, prior stroke, heart attack, diagnosis of carotid artery stenosis or other artery disease. If you smoke, STOP: Smoking or tobacco use significantly increases your risk of heart and lung disease. Your chance of disease greatly increases if you continue to smoke. For more information, call the [employer] tobacco quit line for smoking cessation 6-506-HQGX-NOW ( ) Hold Amlodipine until seen by PCP Monitor BP and keep a log - Diet and Activity Activity: increase activity as tolerated Diet: diabetic diet, low fat, low cholesterol
== END 2018-07-05 16:29 | disposition home or self-care (01) | DRG 287 ==
LOC: EMEROOARM 15:04 → 3BNU 15:04
PROVIDERS: ADMIT Internal Medicine; ATTEND Internal Medicine